=== PATIENT | female | born 1960 | race Caucasian/White ===

== ENCOUNTER 2018-09-03 00:13 | Observation (INO) ==
--- NOTE | 2018-09-03 00:25 | Emergency Department Note ---
ED Disposition Clinical Impression: Tobacco use Chest pain Qualifiers: Chest pain type: precordial pain Qualified Code(s): R07.2 - Precordial pain HTN (hypertension) Qualifiers: Hypertension type: unspecified Qualified Code(s): I10 - Essential (primary) hypertension Disposition: Admitted as Observation Condition on Discharge: Good Referrals: Provider,Referral, [Primary Care Provider] - - Critical Care Critical Care Time: No Attestation: On 09/03/18, the high probability of a clinically significant, sudden or life threatening deterioration of the following system(s) required my full and direct attention, intervention and personal management. The time I documented below is in addition to time spent performing reported procedures but includes the following listed in this critical care notation. Medical Decision Making - Medical Records Medical records reviewed: Yes: I reviewed the patient's medical records. - Navdeep Inquiry Pt receiving controlled substance: No Vital Signs: 09/03/18 00:13 09/03/18 00:55 Temperature 99 F Temperature Source Oral Pulse Rate [Right Radial] 79 70 Respiratory Rate 18 17 Blood Pressure [Right Arm] 188/92 H 136/95 H Blood Pressure Mean [Right Arm] 124 108 Blood Pressure Source [Right Arm] Automatic Cuff Blood Pressure Position [Right Arm] Supine 02 Sat by Pulse Oximetry 98 96 Oxygen Delivery Method Room Air - Lab Data Lab results reviewed: Yes: I reviewed the patient's lab results. Lab Results 09/03/18 00:15: WBC 9.9, RBC 4.65, Hgb 13.3, Hct 41.1, MCV 88.5, MCH 28.6, MCHC 32.3, RDW 13.0, Plt Count 209, MPV 8.0, Neut % (Auto) 53.1, Lymph % (Auto) 37.9, [place] % (Auto) 6.1, Eos % (Auto) 2.0, Baso % (Auto) 0.9, Neut # (Auto) 5.3, Lymph # (Auto) 3.8, [place] # (Auto) 0.6, Eos # (Auto) 0.2, Baso # (Auto) 0.1 09/03/18 00:15: Sodium 144, Potassium 3.5, Chloride 106, Carbon Dioxide 29, Anion Gap 12.5, BUN 18, Creatinine 1.23 H, Estimated Creat Clear 57, Estimated GFR 45 L, Est GFR ( Amer) 54 L, Glucose 100, Calcium 9.2, Troponin I < 0.02 09/03/18 00:17: Urine Color Yellow, Urine Appearance Clear, Urine pH 7.5, Ur Specific [place] 1.015, Urine Protein Negative, Urine Glucose (UA) Negative, Urine Ketones Negative, Urine Blood 1+, Urine Nitrate Negative, Urine Bilirubin Negative, Urine Urobilinogen 0.2, Ur Leukocyte Esterase Negative, Urine RBC 3-5, Urine WBC Occasional, Ur Squamous Epith Cells 20-50 09/03/18 00:17: Urine HCG, Qual Negative Result diagrams: 09/03/18 00:15 09/03/18 00:15 Orders (Tests/Meds): ED MEDICATIONS Discontinued Medications Generic Name Dose Route Start Last Admin Trade Name Freq PRN Reason Stop Dose Admin Aspirin 324 mg 09/03/18 00:20 09/03/18 00:21 Aspirin 81mg Chewable Tablet PO 09/03/18 00:21 324 mg ONCE ONE Administration ORDERS Category Date Time Status XR chest 2V Stat Exams 09/03/18 00:18 Ordered Lipid Panel Stat Lab 09/03/18 01:08 Ordered - Radiology Data #1 Image(s): Chest Image Reviewed: Yes I reviewed the patient's radiology image Preliminary Findings: Normal/NAD - ECG Data Tracing #1 Normal Sinus Rhythm: Yes Ischemic changes: non-specific ST-T wave changes ECG compared to prior tracings: there are no prior tracings available for comparison - Physician Consults Physician Consulted: rachid Reason -: Admission Chest Pain HPI - General Chief Complaint: Chest Pain Stated Complaint: Chest Pain Time Seen by Provider: 09/03/18 00:20 Mode of Arrival: Ambulatory Source of Information: Patient, Medical Record Limitations: No Limitations Description of Symptoms (Recalled from ER Triage Doc. by RN): pt states that she has had squeezing midsternal chest pain that has been going on x 3 days. pt denies seeing a physician concerning matter. - History of Present Illness HPI narrative: new onset of ant chest pain described as chest tightness with several episodes over the last few days lasting about 20 minutes MD complaint: chest pain indicative of cardiac Onset (ago): day(s) Duration: now resolved Activity at onset: during rest Pain location: left chest Quality: tightness Associated symptoms: nausea Risk Factors for CAD: Hypertension, Family Hx of CAD, Smoking Treatments prior to or on arrival for Cardiac Chest Pain: none - MELISSA Score for Non-Stemi Age of Patient: 50-59 years old Heart Rate: 70-89 bpm Systolic Blood Pressure: 160-199 mmHg Serum Creatinine: 1.20-1.59 mg/dl CHF [place] Class: I-No CHF Other Risk Factors: None Non-Stemi Risk Score: 70 - Related Data On Oral Contraceptives: No Allergies Allergy/AdvReac Type Severity Reaction Status Date / Time Penicillins Allergy Verified 09/03/18 00:18 [facility] History - Hepatitis A Screen Drug use history?: No High risk sexual behaviors?: No History of sexually transmitted infection?: No Currently employed?: No Childcare worker?: No Do you have indoor plumbing?: Yes Do you have electricity?: Yes Attestation statement:: This patient has been screened for Hepatitis A risk factors. I have reviewed the patient's past medical history: Yes Medical History: Denies:: Cancer, Diabetes Mellitus Type 1, Diabetes Mellitus Type 2, MRSA Amputation: No - Social History Smoking Status: Current every day smoker # Packs/Day (cigarettes): 1 Alcohol Intake: current Alcohol Intake Frequency:: a few times a month Substance Use Type: marijuana Occupational Status: employed ROS Obtained: Yes All systems reviewed & no additional complaints - Constitutional Constitutional: Denies fever(s) - Eyes Eyes: Denies change in vision - ENT Ears, Nose, Mouth, and Throat: Denies sore throat - Cardiovascular Cardiovascular: Reports as per HPI, Reports chest pain, Reports chest pain at rest - Respiratory Respiratory: No cough, No dyspnea - Gastrointestinal Gastrointestingal: Denies: abdominal pain - Genitourinary Female Genitourinary: Denies hematuria - Musculoskeletal Musculoskeletal: Denies joint pain, Denies joint swelling, Denies neck pain - Integumentary/Breasts Skin/Breast: Denies rash - Neurologic Neurologic: Reports as per HPI, Denies seizure-like activity Physical Exam - General General appearance: alert - Head Head exam: normocephalic - Eye Eye exam: Present: PERRL, EOMI. Absent: scleral icterus - ENT ENT exam: Present: mucous membranes dry - Neck Neck exam: Present: trachea midline - Respiratory Respiratory exam: Present: normal lung sounds bilaterally. Absent: respiratory distress - Cardiovascular Cardiovascular exam: Present: regular rate, systolic murmur - Abdominal Exam Abdominal exam: Present: soft - Extremities Exam Extremities exam: Present: full ROM - Neurological Exam Neurological exam: Present: alert, oriented X3, CN II-XII intact - Psychiatric Psychiatric exam: Present: normal affect - Skin Skin exam: Absent: rash
[2018-09-03 00:31] LABS: Microscopic, Urine URINE MICROSCOPIC (MICROSCOPIC)
[2018-09-03 00:34] LABS: Basophils # 0.1 K/mm3 (0-0.2); Basophils % 0.9 % (0.1-2.0); Eosinophils # 0.2 K/mm3 (0.0-0.4); Hematocrit 41.1 % (37.0-47.0); Hemoglobin 13.3 g/dL (12.2-16.2); Lymphocytes # 3.8 K/mm3 (0.7-4.5); Lymphocytes % 37.9 % (10-50); Mean Corpuscular HGB Conc 32.3 g/dL (31.8-35.4); Mean Corpuscular Volume 88.5 fl (81-99); Monocytes # 0.6 K/mm3 (0.1-1.0); Monocytes % 6.1 % (1.7-9.3); Neutrophils # 5.3 K/mm3 (1.8-7.8); Neutrophils % 53.1 % (37.0-80.0); Platelet Count 209 K/mm3 (142-424); Red Blood Count 4.65 M/mm3 (4.20-5.40); White Blood Count 9.9 K/mm3 (4.8-10.8)
[2018-09-03 00:36] LABS: Appearance,Urine CLEAR (Clear); Bilirubin,Urine Negative (Negative); Blood, Urine 1+ (Negative); Color,Urine YELLOW (Yellow); Glucose,Urine (UA) Negative (Negative); Ketones,Urine Negative (Negative); Leukocyte Esterase,Urine Negative (Negative); PH,Urine 7.5 (5.0-8.5); Protein,Urine Negative (Negative); Specific Gravity, Urine 1.015 (1.005-1.030); Urobilinogen,Urine 0.2 EU/dl (0.2)
[2018-09-03 00:42] LABS: Squamous Epithelial Cell,Urine 20-50 #/hpf (0-5); WBC,Urine Occasional #/hpf (0-3)
[2018-09-03 00:51] LABS: Anion Gap 12.5 mEq/L (5-15); Blood Urea Nitrogen 18 mg/dL (7-18); Calcium 9.2 mg/dL (8.5-10.1); Carbon Dioxide 29 mmol/L (21.0-32.0); Chloride 106 mmol/L (98-107); Glucose 100 mg/dL (74-106); Sodium 144 mmol/L (136-145)
[2018-09-03 01:36] LABS: Chol/HDL Ratio 4.2 (1-3.5)
--- NOTE | 2018-09-03 08:20 | Consult Report ---
History of Present Illness Consult date: 09/03/18 Requesting physician: Sami Cohen Consult reason: chest pain Chief complaint: chest pain Additional Medical History:: 1. Tobacco use 2. FH of CAD in both parents in their late 30's, early 40's (father of [place]) 3. Hypertension History of present illness: 58 yo WF admitted to [facility] for recurrent SS chest pressure/squeezing sensation with discomfort between her shoulder blades without associated SOA, nausea, vomiting or diarrhea. Symptoms present for about 20-30 min and with associated elevated BP of >200/100 mm Hg at home. She relates a total of 4 episodes of chest discomfort prior to presenting to ER for evaluation and was subsequently admitted. Troponins have returned normal and EKG is sinus without acute ST segment changes. NTG paste in place with associated headache. Cardiology consulted for evaluation and recommendations. Recently diagnosed with abscessed tooth and has been taking clindamycin and motrin for 4 days. [facility] History Medical History: Reports:: Heart Murmur Denies:: Cancer, Diabetes Mellitus Type 1, Diabetes Mellitus Type 2, MRSA *Have you ever received a pneumonia vaccine?: No *Have you received a flu vaccine this season?: No Other Surgeries: Yes: Tubal Ligation Amputation: No - *Social History Educational Level: Completed High School Smoking Status: Current every day smoker Tobacco Type: cigarettes # Packs/Day (cigarettes): 1 Alcohol Intake: never Alcohol Intake Frequency:: a few times a month Substance Use Type: marijuana *Occupational Status:: employed Housing: house Household Members: significant other, family *Travel in the last 8 weeks: None - Psychiatric History Expresses thoughts of harming self/others: None Suicide Plan Description: No Plan Family Hx:: Anemia, Cancer, Diabetes, Heart Attack, Hypertension, Stroke Meds Home Medications Medication Instructions Recorded Confirmed Type Clindamycin HCl 150 mg PO QID 09/03/18 09/03/18 History Allergies Allergy/AdvReac Type Severity Reaction Status Date / Time Penicillins Allergy Verified 09/03/18 00:18 Review of Systems - *Cardiovascular Reports chest pain, Denies shortness of breath with activity - *Respiratory Denies cough, Denies shortness of breath with activity - *Gastrointestinal Denies abdominal pain, Denies nausea, Denies vomiting - *Genitourinary Denies urinary urgency - *Musculoskeletal Denies joint pain, Denies back pain - *Neurologic Denies seizure-like activity Exam Vital signs and Labs for Last 24 Hours: Temp Pulse Resp BP Pulse Ox 98 F 68 18 122/73 95 09/03/18 04:00 09/03/18 04:00 09/03/18 04:00 09/03/18 04:00 09/03/18 04:00 Laboratory Results - last 24 hr 09/03/18 00:15: WBC 9.9, RBC 4.65, Hgb 13.3, Hct 41.1, MCV 88.5, MCH 28.6, MCHC 32.3, RDW 13.0, Plt Count 209, MPV 8.0, Neut % (Auto) 53.1, Lymph % (Auto) 37.9, [place] % (Auto) 6.1, Eos % (Auto) 2.0, Baso % (Auto) 0.9, Neut # (Auto) 5.3, Lymph # (Auto) 3.8, [place] # (Auto) 0.6, Eos # (Auto) 0.2, Baso # (Auto) 0.1 09/03/18 00:15: Sodium 144, Potassium 3.5, Chloride 106, Carbon Dioxide 29, Anion Gap 12.5, BUN 18, Creatinine 1.23 H, Estimated Creat Clear 57, Estimated GFR 45 L, Est GFR ( Amer) 54 L, Glucose 100, Calcium 9.2, Troponin I < 0.02 09/03/18 00:17: Urine Color Yellow, Urine Appearance Clear, Urine pH 7.5, Ur Specific [place] 1.015, Urine Protein Negative, Urine Glucose (UA) Negative, Urine Ketones Negative, Urine Blood 1+, Urine Nitrate Negative, Urine Bilirubin Negative, Urine Urobilinogen 0.2, Ur Leukocyte Esterase Negative, Urine RBC 3-5, Urine WBC Occasional, Ur Squamous Epith Cells 20-50 09/03/18 00:17: Urine HCG, Qual Negative 09/03/18 00:17: Triglycerides 199, Cholesterol 207 H, LDL Cholesterol 118, VLDL Cholesterol 40, HDL Cholesterol 49, Cholesterol/HDL Ratio 4.2 H 09/03/18 04:15: Troponin I < 0.02 I & O for Last 24 hours: Intake & Output 08/31/18 09/01/18 09/02/18 09/03/18 11:59 11:59 11:59 11:59 Intake Total 292 / 292 Balance 292 / 292 Weight 162 lb 4 oz - *Routine HEENT Exam Head: Present: normocephalic Eye: Present: EOMI, PERRL ENT: Present: mucous membranes moist - *Routine Neck Exam Present: supple. Absent: JVD, carotid bruit - *Routine Respiratory Exam Present: CTA bilaterally. Absent: accessory muscle use, rales, rhonchi, wheezes - *Routine Cardiovascular Exam Present: RRR. Absent: murmur, gallop, rubs - *Routine Abdominal Exam Present: soft. Absent: tenderness, distended, guarding - *Routine Extremities Exam Absent: edema, calf tenderness - *Routine Neurological Exam Present: alert, oriented X3, moving all extremities Assessment and Plan (1) Chest pain Current visit: Yes Status: Acute Qualifiers: Chest pain type: precordial pain Qualified Code(s): R07.2 - Precordial pain Category: Medical Code(s): R07.9 - Chest pain, unspecified (2) HTN (hypertension) Current visit: Yes Status: Acute Qualifiers: Hypertension type: unspecified Qualified Code(s): I10 - Essential (primary) hypertension Category: Medical Code(s): I10 - Essential (primary) hypertension (3) Tobacco use Current visit: Yes Status: Acute Category: Medical Code(s): Z72.0 - Tobacco use (4) FH: CAD (coronary artery disease) Current visit: Yes Status: Acute Category: Medical Code(s): Z82.49 - Family history of ischemic heart disease and other diseases of the circulatory system - Assessment and plan all Dx Assessment and Plan for all problems:: 1. Stop NTG paste due to headache. 2. Start ASA 81 mg daily along with norvasc 5 mg daily 3. Preliminary echo shows normal LVEF with evidence of LVH without significant valve disease. 4. Pt with elevated BP and chest pain with normal EKG and troponins. CRF's of tobacco use and FH of CAD. Pt concerned about finances and would prefer medical therapy trial first. With echo showing normal LVEF and evidence of LVH, then she is low risk for MACE and could be discharged home for outpatient follow up and further evaluation as indicated.
--- NOTE | 2018-09-03 09:14 | Pharmacy Consult Notes ---
[facility] Pharmacy VTE Monitoring - Patient Demographics Admission date: 09/03/18 Report Date: 09/03/18 Time: 09:14 Allergies/Adverse Reactions: Patient Allergies Penicillins Allergy (Verified 09/03/18 00:18) Height: 1.73 m Weight: 73.595 kg Patient Problems: Current Active Problems (Updated 09/03/18 @ 08:58 by GRECIA Malloy) Chest pain (Acute) Tobacco use (Acute) HTN (hypertension) (Acute) FH: CAD (coronary artery disease) (Acute) - VTE Risk Labs: VTE Related Lab Results Hgb 13.3 g/dL (12.2-16.2) 09/03/18 00:15 Hct 41.1 % (37.0-47.0) 09/03/18 00:15 Plt Count 209 K/mm3 (142-424) 09/03/18 00:15 BUN 18 mg/dL (7-18) 09/03/18 00:15 Creatinine 1.23 mg/dL (0.55-1.02) H 09/03/18 00:15 Estimated Creat Clear 57 mL/min (50-200) 09/03/18 00:15 Was VTE Risk Assessment Performed: Yes VTE Score: 3 VTE Risk Level: Low Risk Clinical Trial Participant: No - Prophylaxis VTE Prophylaxis Ordered?: Yes Types of VTE Prophylaxis: TEDS Knee High
--- NOTE | 2018-09-03 09:27 | H&P/Discharge Summary ---
<Christina Martinez - Last Filed: 09/03/18 13:16> General - General Admission date:: 09/03/18 Discharge date: 09/03/18 *Admission Date: 09/03/18 *Chief complaint: chest pain *History of present illness: Ms. Dilalo is a 58-year-old healthy female who began having chest pain on 09/01/2018. She states she had 2 episodes on this date and describes the discomfort as midsternal squeezing-like pain. There was no radiation, shortness of breath, diaphoresis, or palpitations. She states she did experience some nausea. Each episode lasted about 30 minutes. The following day she did well until after eating at a restaurant. She went home and the pain was gone. After lying down the pain began again. Her blood pressure was elevated at 200+/100+ and at this time she decided she needed to be evaluated. With each episode of chest pain her blood pressure was elevated. With evaluation in the emergency room and because of patient's risk factors, chest pain, and hypertension she was admitted for further evaluation. To note patient recently has had an abscessed tooth and has been taking Motrin 600 mg twice daily for the last 4 days and was also placed on clindamycin by her dentist. She has no family physician. She did have a stress test after being admitted to a hospital with chest pain about 6 years ago which was negative. She has had no follow-up since. [facility] History Medical History: Reports:: Heart Murmur (Had rheumatic fever as a child), Hypertension Denies:: Cancer, Chronic Obstructive Pulmonary Disease (COPD), Coronary Artery Disease, Diabetes Mellitus Type 1, Diabetes Mellitus Type 2, Gastroesophageal Reflux Disease(GERD), MRSA *Have you ever received a pneumonia vaccine?: No *Have you received a flu vaccine this season?: No Other Surgeries: Yes: Tubal Ligation Amputation: No - *Social History Educational Level: Completed High School Smoking Status: Current every day smoker Tobacco Type: cigarettes # Packs/Day (cigarettes): 1 Alcohol Intake: never Alcohol Intake Frequency:: a few times a month Substance Use Type: marijuana *Occupational Status:: employed Housing: house Household Members: significant other, family *Travel in the last 8 weeks: None - Psychiatric History Expresses thoughts of harming self/others: None Suicide Plan Description: No Plan Family Hx:: Anemia, Cancer, Diabetes, Heart Attack, Hypertension, Stroke Review of Systems - Constitutional Reports headache(s), Denies fever(s) - ENT Reports dental pain, Reports dizziness, Reports headache(s), Reports mouth pain (Abscessed tooth and has been taking Motrin and clindamycin for the past 4 d), Denies ear pain, Denies nasal congestion - *Cardiovascular Reports chest pain, Denies excessive sweating, Denies shortness of breath, Denies generalized swelling, Denies irregular heart rhythm, Denies rapid, pounding, or irregular heartbeat, Denies radiating jaw, neck or arm pain - *Respiratory Denies chest congestion, Denies cough, Denies shortness of breath, Denies coughing up blood, Denies pain on inspiration, Denies wheezing - *Gastrointestinal Denies abdominal pain, Denies change in bowel habits, Denies constipation, Denies heartburn, Denies heartburn, Denies vomiting blood, Denies nausea, Denies vomiting - *Genitourinary Denies difficulty urinating - *Musculoskeletal Denies abnormal walking, Denies joint pain - *Neurologic Reports dizziness (When she leans over), Denies abnormal walking, Denies abnormal speech, Denies behavioral changes, Denies confusion, Denies seizure- like activity, Denies seizure-like activity Exam Vital signs and Labs for Last 24 Hours: Temp Pulse Resp BP Pulse Ox 97.9 F 62 22 129/73 95 09/03/18 08:00 09/03/18 08:00 09/03/18 08:00 09/03/18 08:00 09/03/18 08:00 Laboratory Results - last 24 hr 09/03/18 00:15: WBC 9.9, RBC 4.65, Hgb 13.3, Hct 41.1, MCV 88.5, MCH 28.6, MCHC 32.3, RDW 13.0, Plt Count 209, MPV 8.0, Neut % (Auto) 53.1, Lymph % (Auto) 37.9, [place] % (Auto) 6.1, Eos % (Auto) 2.0, Baso % (Auto) 0.9, Neut # (Auto) 5.3, Lymph # (Auto) 3.8, [place] # (Auto) 0.6, Eos # (Auto) 0.2, Baso # (Auto) 0.1 09/03/18 00:15: Sodium 144, Potassium 3.5, Chloride 106, Carbon Dioxide 29, Anion Gap 12.5, BUN 18, Creatinine 1.23 H, Estimated Creat Clear 57, Estimated GFR 45 L, Est GFR ( Amer) 54 L, Glucose 100, Calcium 9.2, Troponin I < 0.02 09/03/18 00:17: Urine Color Yellow, Urine Appearance Clear, Urine pH 7.5, Ur Specific [place] 1.015, Urine Protein Negative, Urine Glucose (UA) Negative, Urine Ketones Negative, Urine Blood 1+, Urine Nitrate Negative, Urine Bilirubin Negative, Urine Urobilinogen 0.2, Ur Leukocyte Esterase Negative, Urine RBC 3-5, Urine WBC Occasional, Ur Squamous Epith Cells 20-50 09/03/18 00:17: Urine HCG, Qual Negative 09/03/18 00:17: Triglycerides 199, Cholesterol 207 H, LDL Cholesterol 118, VLDL Cholesterol 40, HDL Cholesterol 49, Cholesterol/HDL Ratio 4.2 H 09/03/18 04:15: Troponin I < 0.02 09/03/18 07:45: Troponin I < 0.02 I & O for Last 24 hours: Intake & Output 08/31/18 09/01/18 09/02/18 09/03/18 11:59 11:59 11:59 11:59 Intake Total 292 / 292 Balance 292 / 292 Weight 162 lb 4 oz Radiology Reports for the Last 24 Hours: 09/03/2018 chest x-ray IMPRESSION: Negative chest, no acute finding - Constitutional no acute distress Comments: Lying in bed and appears comfortable - *Routine HEENT Exam Head: Present: normocephalic, atraumatic Eye: Present: PERRL. Absent: conjunctival icterus, scleral injection ENT: Present: mucous membranes moist, oropharynx clear - *Routine Neck Exam Present: supple. Absent: carotid bruit, lymphadenopathy, thyromegaly - Routine Chest/Breast/Axilla Exam Chest wall: Absent: tenderness - *Routine Respiratory Exam Present: CTA bilaterally (Anteriorly and posteriorly) - *Routine Cardiovascular Exam Present: RRR - *Routine Abdominal Exam Present: soft, normoactive bowel sounds. Absent: tenderness, distended, guarding, organomegaly - *Routine Extremities Exam Absent: edema, calf tenderness - Routine Back/Spine/Pelvis Exam Back/Spine: Present: paraspinal tenderness (Upper back and cervical spine) - *Routine Neurological Exam Present: alert, oriented X3 Hospital Course Hospital Course: Patient arrived to her room on the medical floor at about 3 AM. She states her chest pain went away after the nitroglycerin and aspirin in the emergency room. She had no further chest discomfort. Troponins have been normal x3. EKG shows no acute changes. She has been seen by cardiology with the following comments: Assessment and Plan for all problems:: 1. Stop NTG paste due to headache. 2. Start ASA 81 mg daily along with norvasc 5 mg daily 3. Preliminary echo shows normal LVEF with evidence of LVH without significant valve disease. 4. Pt with elevated BP and chest pain with normal EKG and troponins. CRF's of tobacco use and FH of CAD. Pt concerned about finances and would prefer medical therapy trial first. With echo showing normal LVEF and evidence of LVH, then she is low risk for MACE and could be discharged home for outpatient follow up and further evaluation as indicated. Thus the patient to be discharged on Norvasc and an aspirin with cardiology follow-up in 1 week. Results Labs on day of discharge: Labs from last 24 hours 09/03/18 09/03/18 09/03/18 07:45 04:15 00:17 WBC RBC Hgb Hct MCV MCH MCHC RDW Plt Count MPV Neut % (Auto) Lymph % (Auto) [place] % (Auto) Eos % (Auto) Baso % (Auto) Neut # (Auto) Lymph # (Auto) [place] # (Auto) Eos # (Auto) Baso # (Auto) Sodium Potassium Chloride Carbon Dioxide Anion Gap BUN Creatinine Estimated Creat Clear Estimated GFR Est GFR ( Amer) Glucose Calcium Troponin I < 0.02 < 0.02 Triglycerides 199 Cholesterol 207 H LDL Cholesterol 118 VLDL Cholesterol 40 HDL Cholesterol 49 Cholesterol/HDL Ratio 4.2 H Urine Color Urine Appearance Urine pH Ur Specific [place] Urine Protein Urine Glucose (UA) Urine Ketones Urine Blood Urine Nitrate Urine Bilirubin Urine Urobilinogen Ur Leukocyte Esterase Urine RBC Urine WBC Ur Squamous Epith Cells Urine HCG, Qual 09/03/18 09/03/18 09/03/18 00:17 00:17 00:15 WBC RBC Hgb Hct MCV MCH MCHC RDW Plt Count MPV Neut % (Auto) Lymph % (Auto) [place] % (Auto) Eos % (Auto) Baso % (Auto) Neut # (Auto) Lymph # (Auto) [place] # (Auto) Eos # (Auto) Baso # (Auto) Sodium 144 Potassium 3.5 Chloride 106 Carbon Dioxide 29 Anion Gap 12.5 BUN 18 Creatinine 1.23 H Estimated Creat Clear 57 Estimated GFR 45 L Est GFR ( Amer) 54 L Glucose 100 Calcium 9.2 Troponin I < 0.02 Triglycerides Cholesterol LDL Cholesterol VLDL Cholesterol HDL Cholesterol Cholesterol/HDL Ratio Urine Color Yellow Urine Appearance Clear Urine pH 7.5 Ur Specific [place] 1.015 Urine Protein Negative Urine Glucose (UA) Negative Urine Ketones Negative Urine Blood 1+ Urine Nitrate Negative Urine Bilirubin Negative Urine Urobilinogen 0.2 Ur Leukocyte Esterase Negative Urine RBC 3-5 Urine WBC Occasional Ur Squamous Epith Cells 20-50 Urine HCG, Qual Negative 09/03/18 00:15 WBC 9.9 RBC 4.65 Hgb 13.3 Hct 41.1 MCV 88.5 MCH 28.6 MCHC 32.3 RDW 13.0 Plt Count 209 MPV 8.0 Neut % (Auto) 53.1 Lymph % (Auto) 37.9 [place] % (Auto) 6.1 Eos % (Auto) 2.0 Baso % (Auto) 0.9 Neut # (Auto) 5.3 Lymph # (Auto) 3.8 [place] # (Auto) 0.6 Eos # (Auto) 0.2 Baso # (Auto) 0.1 Sodium Potassium Chloride Carbon Dioxide Anion Gap BUN Creatinine Estimated Creat Clear Estimated GFR Est GFR ( Amer) Glucose Calcium Troponin I Triglycerides Cholesterol LDL Cholesterol VLDL Cholesterol HDL Cholesterol Cholesterol/HDL Ratio Urine Color Urine Appearance Urine pH Ur Specific [place] Urine Protein Urine Glucose (UA) Urine Ketones Urine Blood Urine Nitrate Urine Bilirubin Urine Urobilinogen Ur Leukocyte Esterase Urine RBC Urine WBC Ur Squamous Epith Cells Urine HCG, Qual DS: Diagnosis - Discharge Diagnosis (1) Chest pain Status: Acute (2) HTN (hypertension) Status: Acute (3) Tobacco use Status: Acute (4) FH: CAD (coronary artery disease) Status: Acute (5) Tooth abscess Status: Acute (6) Renal insufficiency Status: Acute Discharge Plan - Patient Discharge Instructions Patient Instructions: High Blood Pressure - Follow up Plan Follow up with: Javier Arellano MD [Staff Physician] - 09/07/18 11:30 am Disposition: Home, Self-Long Term Medications: Home Medications Medication Instructions Recorded Confirmed Type Amlodipine Besylate [Norvasc 5mg 5 mg PO DAILY #30 tab 09/03/18 Rx tablet] Aspirin [Aspirin 81mg chewable 81 mg PO DAILY #30 tab.chew 09/03/18 Rx tab] Clindamycin HCl 150 mg PO QID 09/03/18 09/03/18 History Prescriptions/Medication Reconciliation: New Amlodipine Besylate [Norvasc 5mg tablet] 5 mg PO DAILY #30 tab Aspirin [Aspirin 81mg chewable tab] 81 mg PO DAILY #30 tab.chew Continued Clindamycin HCl 150 mg PO QID <Sami Cohen - Last Filed: 09/03/18 13:21> General - General Admission date:: 09/03/18 Exam Vital signs and Labs for Last 24 Hours: Temp Pulse Resp BP Pulse Ox 98.2 F 66 16 111/66 95 09/03/18 11:39 09/03/18 11:39 09/03/18 11:39 09/03/18 11:39 09/03/18 11:39 Laboratory Results - last 24 hr 09/03/18 00:15: WBC 9.9, RBC 4.65, Hgb 13.3, Hct 41.1, MCV 88.5, MCH 28.6, MCHC 32.3, RDW 13.0, Plt Count 209, MPV 8.0, Neut % (Auto) 53.1, Lymph % (Auto) 37.9, [place] % (Auto) 6.1, Eos % (Auto) 2.0, Baso % (Auto) 0.9, Neut # (Auto) 5.3, Lymph # (Auto) 3.8, [place] # (Auto) 0.6, Eos # (Auto) 0.2, Baso # (Auto) 0.1 09/03/18 00:15: Sodium 144, Potassium 3.5, Chloride 106, Carbon Dioxide 29, Anion Gap 12.5, BUN 18, Creatinine 1.23 H, Estimated Creat Clear 57, Estimated GFR 45 L, Est GFR ( Amer) 54 L, Glucose 100, Calcium 9.2, Troponin I < 0.02 09/03/18 00:17: Urine Color Yellow, Urine Appearance Clear, Urine pH 7.5, Ur Specific [place] 1.015, Urine Protein Negative, Urine Glucose (UA) Negative, Urine Ketones Negative, Urine Blood 1+, Urine Nitrate Negative, Urine Bilirubin Negative, Urine Urobilinogen 0.2, Ur Leukocyte Esterase Negative, Urine RBC 3-5, Urine WBC Occasional, Ur Squamous Epith Cells 20-50 09/03/18 00:17: Urine HCG, Qual Negative 09/03/18 00:17: Triglycerides 199, Cholesterol 207 H, LDL Cholesterol 118, VLDL Cholesterol 40, HDL Cholesterol 49, Cholesterol/HDL Ratio 4.2 H 09/03/18 04:15: Troponin I < 0.02 09/03/18 07:45: Troponin I < 0.02 I & O for Last 24 hours: Intake & Output 08/31/18 09/01/18 09/02/18 09/03/18 23:59 23:59 23:59 23:59 Intake Total 532 / 532 Balance 532 / 532 Weight 162 lb 4 oz Hospital Course Hospital Course: Saw patient, agree with above note. Results Labs on day of discharge: Labs from last 24 hours 09/03/18 09/03/18 09/03/18 07:45 04:15 00:17 WBC RBC Hgb Hct MCV MCH MCHC RDW Plt Count MPV Neut % (Auto) Lymph % (Auto) [place] % (Auto) Eos % (Auto) Baso % (Auto) Neut # (Auto) Lymph # (Auto) [place] # (Auto) Eos # (Auto) Baso # (Auto) Sodium Potassium Chloride Carbon Dioxide Anion Gap BUN Creatinine Estimated Creat Clear Estimated GFR Est GFR ( Amer) Glucose Calcium Troponin I < 0.02 < 0.02 Triglycerides 199 Cholesterol 207 H LDL Cholesterol 118 VLDL Cholesterol 40 HDL Cholesterol 49 Cholesterol/HDL Ratio 4.2 H Urine Color Urine Appearance Urine pH Ur Specific [place] Urine Protein Urine Glucose (UA) Urine Ketones Urine Blood Urine Nitrate Urine Bilirubin Urine Urobilinogen Ur Leukocyte Esterase Urine RBC Urine WBC Ur Squamous Epith Cells Urine HCG, Qual 09/03/18 09/03/18 09/03/18 00:17 00:17 00:15 WBC RBC Hgb Hct MCV MCH MCHC RDW Plt Count MPV Neut % (Auto) Lymph % (Auto) [place] % (Auto) Eos % (Auto) Baso % (Auto) Neut # (Auto) Lymph # (Auto) [place] # (Auto) Eos # (Auto) Baso # (Auto) Sodium 144 Potassium 3.5 Chloride 106 Carbon Dioxide 29 Anion Gap 12.5 BUN 18 Creatinine 1.23 H Estimated Creat Clear 57 Estimated GFR 45 L Est GFR ( Amer) 54 L Glucose 100 Calcium 9.2 Troponin I < 0.02 Triglycerides Cholesterol LDL Cholesterol VLDL Cholesterol HDL Cholesterol Cholesterol/HDL Ratio Urine Color Yellow Urine Appearance Clear Urine pH 7.5 Ur Specific [place] 1.015 Urine Protein Negative Urine Glucose (UA) Negative Urine Ketones Negative Urine Blood 1+ Urine Nitrate Negative Urine Bilirubin Negative Urine Urobilinogen 0.2 Ur Leukocyte Esterase Negative Urine RBC 3-5 Urine WBC Occasional Ur Squamous Epith Cells 20-50 Urine HCG, Qual Negative 09/03/18 00:15 WBC 9.9 RBC 4.65 Hgb 13.3 Hct 41.1 MCV 88.5 MCH 28.6 MCHC 32.3 RDW 13.0 Plt Count 209 MPV 8.0 Neut % (Auto) 53.1 Lymph % (Auto) 37.9 [place] % (Auto) 6.1 Eos % (Auto) 2.0 Baso % (Auto) 0.9 Neut # (Auto) 5.3 Lymph # (Auto) 3.8 [place] # (Auto) 0.6 Eos # (Auto) 0.2 Baso # (Auto) 0.1 Sodium Potassium Chloride Carbon Dioxide Anion Gap BUN Creatinine Estimated Creat Clear Estimated GFR Est GFR ( Amer) Glucose Calcium Troponin I Triglycerides Cholesterol LDL Cholesterol VLDL Cholesterol HDL Cholesterol Cholesterol/HDL Ratio Urine Color Urine Appearance Urine pH Ur Specific [place] Urine Protein Urine Glucose (UA) Urine Ketones Urine Blood Urine Nitrate Urine Bilirubin Urine Urobilinogen Ur Leukocyte Esterase Urine RBC Urine WBC Ur Squamous Epith Cells Urine HCG, Qual DS: Diagnosis - Discharge Diagnosis (1) Chest pain Status: Acute (2) HTN (hypertension) Status: Acute (3) Tobacco use Status: Acute (4) FH: CAD (coronary artery disease) Status: Acute (5) Tooth abscess Status: Acute (6) Renal insufficiency Status: Acute
--- NOTE | 2018-09-03 21:00 | Cardiology Report ---
PROCEDURE: 2-D M-mode and color Doppler study INDICATIONS FOR THE TEST: Chest pain + COPD Heart Murmur Tobacco Smoking+ Palpitations Fatigue Syncope Edema Hypertension+Diabetes Mellitus Rheumatic Fever SOB BOWDEN Obesity Hyperlipidemia Family History HD Additional History PATIENT INFORMATION HEIGHT: 68 WEIGHT:160 GENDER: Female B/P:136/95 2-D/M-MODE INTERPRETATION: 2-D MEASUREMENTS OBSERVED VALUES IN CMS Right Ventricular Dimension (RVDd) 2.4 Interventricular Septum (Thickness)(IVsd) 0.9 Left Ventricular Internal Dimensions(LVIDd) 4.9 Left Ventricular Posterior Wall (Thickness)(LVPWd) 0.7 Aortic Root 3.9 Aortic Cusp Separation 2.0 Left Atrial Dimensions (LAD) 3.7 2D 1. Left atrium is mildly enlarged, left ventricle is normal size, mild concentric left ventricular hypertrophy, visually estimated ejection fraction 55% with no regional wall motion abnormality. 2. The right atrium and right ventricle are mildly enlarged with normal contractility. 3. The aortic root is enlarged measuring 3.9 cm. 4. The mitral and tricuspid valve leaflets are thickened. 5. The pulmonic valve Is poorly visualized. 6. No significant pericardial effusion noted DOPPLER INTERROGATION: Doppler interrogation of the aortic, mitral and tricuspid valvular presence of mild aortic, mild mitral and tricuspid regurgitation. Tricuspid regurgitation jet velocity is inadequate for calculation of the right ventricular systolic pressure, diastolic parameters are inconclusive CONCLUSION: 1. Mildly enlarged left atrium, normal left ventricular size, mild concentric left ventricular hypertrophy, visually estimated ejection fraction 55% with no regional wall motion abnormality, diastolic parameters are inconclusive. 2. Enlarged aortic root, there is no aortic stenosis, there is mild aortic insufficiency. 3. Mild mitral and tricuspid regurgitation 4. No significant pericardial effusion noted.
== END 2018-09-03 13:20 | disposition home or self-care (01) ==
LOC: ER 00:13 → 2ND 00:13
PROVIDERS: ADMIT Family Medicine; ATTEND Family Medicine
DX: Z82.49 Family history of ischemic heart disease and other diseases of the circulatory system; Z72.0 Tobacco use; Z88.0 Allergy status to penicillin; N28.9 Disorder of kidney and ureter, unspecified; K04.7 Periapical abscess without sinus; R07.2 Precordial pain; I10 Essential (primary) hypertension
CPT/HCPCS: 36415; 71020; 71046; 80048; 80061; 81001; 81025; 84484; 85025; 93005; 93306; 99284; G0378

== ENCOUNTER 2020-06-29 11:26 | Observation (INO) | payer BC, SELFPAY ==
[2020-06-29] VITALS (11 sets, daily range): BP systolic 113–142; BP diastolic 76–99; PULSE 71–99; RESP 14–20; TEMP 36.8; O2SAT 96–98; BMI 25.0; BMI 24.3
--- NOTE | 2020-06-29 11:16 | ECG_ITS ---
APPROVED REPORT Exam: Resting ECG HR:110 bpm ECG Measurements Heart Rate 110 AXES [place] 138 P 73 QRSd 88 QRS 67 QT 314 T 65 QTc 424 Conclusion Sinus tachycardia Biatrial enlargement Abnormal ECG Electronically signed by : Kam Davis, 06/29/2020 17:43:32
--- NOTE | 2020-06-29 11:33 | CT_ITS ---
PROCEDURE: CT ANGIO CHEST CLINCIAL INDICATION: short of breath, cancer Tobacco use, colon cancer COMPARISON: No exams were available for comparison TECHNIQUE: IV Contrast: 70ML Isovue 370 Axial images obtained with sagittal and coronal reformats. All CT scans at the facility use one or more dose reduction, viz: automated exposure control, ma/kV adjustment per patient size (including targeted exams where dose is matched to indication, i.e. head), or iterative reconstruction technique. FINDINGS: HEART AND MEDIASTINAL STRUCTURES: No evidence of pulmonary embolus, aortic aneurysm, or aortic dissection. There is some mild haziness of the mediastinal. This is of questionable clinical significance and chronicity. Old films would be helpful if available. No obvious mediastinal or hilar mass or adenopathy. LUNGS AND PLEURAL SPACES: COPD changes with mild scattered haziness of the interstitial markings which may be related to smoking related lung disease. There are scattered cystic changes of the lung in the right upper lobe. No lobar consolidation. No suspicious nodules. BONY STRUCTURES: No acute bony abnormalities apparent. UPPER ABDOMEN: There is narrowing of the GE junction. This is nonspecific and could be due to nondistention. Upper endoscopy may confirm. ADDITIONAL FINDINGS: No other significant abnormalities. IMPRESSION: 1. No evidence of pulmonary embolus. 2. Hazy scattered interstitial markings which may be related to smoking related lung disease. 3. Bronchiectasis in the right upper lobe with some nonspecific cystic changes in the right upper lobe anteriorly and medially. 4. Narrowing of the GE junction. Consider upper endoscopy for further evaluation. Dictated by: Hebert Quinones MD 06/29/2020 13:10 Hebert Quinones MD in [place] 06/29/2020 13:10
--- NOTE | 2020-06-29 11:34 | [facility].EDGENADL ---
ED Disposition Clinical Impression: Atypical chest pain Colon cancer Qualifiers: Colon location: unspecified part of colon Qualified Code(s): C18.9 - Malignant neoplasm of colon, unspecified HTN (hypertension) Qualifiers: Hypertension type: essential hypertension Qualified Code(s): I10 - Essential (primary) hypertension Disposition: Admitted as Observation Condition on Discharge: Fair Time of Disposition: 14:09 - Critical Care Critical Care Time: No Attestation: On , the high probability of a clinically significant, sudden or life threatening deterioration of the following system(s) required my full and direct attention, intervention and personal management. The time I documented below is in addition to time spent performing reported procedures but includes the following listed in this critical care notation. Medical Decision Making - Medical Records Medical records reviewed: Yes: I reviewed the patient's medical records. - Navdeep Inquiry Pt receiving controlled substance: No Vital Signs: 06/29/20 11:27 06/29/20 11:45 06/29/20 12:53 Temperature 98.3 F Temperature Source Oral Pulse Rate 88 82 Pulse Rate [Right Radial] 99 H Respiratory Rate 18 15 16 Blood Pressure 121/88 115/83 Blood Pressure [Right Arm] 142/99 H Blood Pressure Mean 89 Blood Pressure Mean [Right Arm] 113 Blood Pressure Source Blood Pressure Source [Right Arm] Automatic Cuff Blood Pressure Position Blood Pressure Position [Right Arm] Sitting 02 Sat by Pulse Oximetry 96 96 97 Oxygen Delivery Method Room Air Room Air 06/29/20 12:54 06/29/20 13:00 06/29/20 13:30 Temperature Temperature Source Pulse Rate 77 71 72 Pulse Rate [Right Radial] Respiratory Rate 18 16 16 Blood Pressure 115/83 121/83 114/79 Blood Pressure [Right Arm] Blood Pressure Mean 90 87 Blood Pressure Mean [Right Arm] Blood Pressure Source Automatic Cuff Blood Pressure Source [Right Arm] Blood Pressure Position Sitting Blood Pressure Position [Right Arm] 02 Sat by Pulse Oximetry 96 97 97 Oxygen Delivery Method Room Air Room Air 06/29/20 14:00 06/29/20 15:06 Temperature Temperature Source Pulse Rate 81 Pulse Rate [Right Radial] Respiratory Rate 20 14 Blood Pressure 136/84 118/82 Blood Pressure [Right Arm] Blood Pressure Mean Blood Pressure Mean [Right Arm] Blood Pressure Source Blood Pressure Source [Right Arm] Blood Pressure Position Blood Pressure Position [Right Arm] 02 Sat by Pulse Oximetry 96 Oxygen Delivery Method - Lab Data Lab Results 06/29/20 11:41: WBC 9.0, RBC 4.42, Hgb 12.9, Hct 40.5, MCV 91.6, MCH 29.1, MCHC 31.8, RDW 12.2, Plt Count 168, MPV 8.3, Neut % (Auto) 74.0, Lymph % (Auto) 21.5, [place] % (Auto) 2.4, Eos % (Auto) 1.8, Baso % (Auto) 0.4, Neut # (Auto) 6.6, Lymph # (Auto) 1.9, [place] # (Auto) 0.2, Eos # (Auto) 0.2, Baso # (Auto) 0.0 06/29/20 11:41: Sodium 137, Potassium 3.7, Chloride 105, Carbon Dioxide 24, Anion Gap 11.7, BUN 18 H, Creatinine 0.80, Estimated Creat Clear 89, Estimated GFR 73, Est GFR ( Amer) 89, Glucose 128 H, Calcium 8.7, Total Bilirubin 0.5, AST 31, ALT 15, Alkaline Phosphatase 67, Troponin I < 0.01, Total Protein 6.5, Albumin 4.0, Globulin 2.5, Albumin/Globulin Ratio 1.6 06/29/20 11:41: NT-Pro-B Natriuret Pep 53.3 06/29/20 14:55: Troponin I < 0.01 Result diagrams: 06/29/20 11:41 06/29/20 11:41 Orders (Tests/Meds): ED MEDICATIONS Generic Name Dose Route Start Last Admin Trade Name Annelise PRN Reason Stop Dose Admin Acetaminophen 650 mg 06/29/20 15:46 Acetaminophen 325mg Tab PO 07/29/20 15:45 Q4HP PRN Fever or Mild Pain Diphenhydramine HCl 50 mg 06/30/20 09:30 Diphenhydramine 50mg/Ml Vial IV 06/30/20 09:31 ONCE ONE Sodium Chloride 1,000 mls @ 50 mls/hr 06/29/20 15:46 Sod Chlor 0.9% 1000ml Bag IV 07/29/20 15:45 .Q20H RITU Non-Formulary Medication 8 mg 06/29/20 15:46 Ondansetron [Ond
[2020-06-29 11:55] LABS: Basophils % 0.4 % (0.1-2.0); Eosinophils # 0.2 K/mm3 (0.0-0.4); Eosinophils % 1.8 % (0.1-12.0); Hematocrit 40.5 % (37.0-47.0); Hemoglobin 12.9 g/dL (12.2-16.2); Lymphocytes # 1.9 K/mm3 (0.7-4.5); Lymphocytes % 21.5 % (10-50); Mean Corpuscular HGB Conc 31.8 g/dL (31.8-35.4); Mean Corpuscular Hemoglobin 29.1 pg (27.0-31.2); Mean Corpuscular Volume 91.6 fl (81-99); Mean Platelet Volume 8.3 fl (7.4-10.4); Monocytes # 0.2 K/mm3 (0.1-1.0); Monocytes % 2.4 % (1.7-9.3); Neutrophils # 6.6 K/mm3 (1.8-7.8); Platelet Count 168 K/mm3 (142-424); Red Blood Count 4.42 M/mm3 (4.20-5.40); Red Cell Distribution Width 12.2 % (11.5-17.5)
[2020-06-29 11:56] LABS: Chloride 105 mmol/L (98-107); Potassium 3.7 mmoL/L (3.5-5.1); Sodium 137 mmol/L (136-145)
[2020-06-29 11:58] LABS: Alanine Aminotransferase 15 U/L (12-78); Aspartate Amino Transferase 31 U/L (14-36); Blood Urea Nitrogen 18 mg/dl (7-17); Creatinine Clearance Estimated 89 mL/min (50-200); Estimated Glomerular Filt Rate 73 ml/min (>60); GFR (African American) 89 ML/MIN (>60)
[2020-06-29 11:59] LABS: Albumin/Globulin Ratio 1.6 (1.1-1.8); Alkaline Phosphatase 67 U/L (38-126); Anion Gap 11.7 mEq/L (5-15); Bilirubin,Total 0.5 mg/dl (0.2-1.3); Calcium 8.7 mg/dl (8.4-10.2); Carbon Dioxide 24 mmol/L (22.0-30.0); Globulin 2.5 g/dL (1.3-3.2); Glucose 128 mg/dl (74-100); Total Protein,Serum 6.5 g/dl (6.3-8.2)
[2020-06-29 12:08] LABS: NT Pro Brain Natriuretic Pep. 53.3 pg/mL (0-125)
[2020-06-29 12:21] LABS: Troponin I < 0.01 ng/ml (0.00-0.034)
--- NOTE | 2020-06-29 12:31 | PC.NURSE ---
pt in CT
--- NOTE | 2020-06-29 12:50 | PC.NURSE ---
pt return from CT
--- NOTE | 2020-06-29 14:11 | PC.NURSE ---
waiting diamond finishing supervisor back from Dr. Curtis who is on service call.
--- NOTE | 2020-06-29 14:12 | PC.NURSE ---
notified cardiology staff of consult on pt per ER MD request.
--- NOTE | 2020-06-29 14:57 | PC.NURSE ---
Called Dr. Curtis office and spoke with Megan, advised he was in a room and she would have him call us right back
--- NOTE | 2020-06-29 15:04 | PC.NURSE ---
Dr Camargo speaking to Dr Curtis about pt
[2020-06-29 15:47] LABS: Troponin I < 0.01 ng/ml (0.00-0.034)
--- NOTE | 2020-06-29 15:50 | HMH.CNCARD ---
History of Present Illness Consult date: 06/29/20 Requesting physician: Joanie Camargo Consult reason: chest pain Chief complaint: chest pain History of present illness: This is a 59-year-old white female who presented to the emergency department with complaints of chest pain. The patient states that the pain started initially in her back between her shoulder blades and then radiated to the substernal aspect of her chest. The patient states that it feels like she has a band around her squeezing. She states that this also radiated to her neck and her left shoulder. She states that the episodes occur intermittently. She states the chest pain started when she got her first chemo treatment on Monday of last week but significantly worsened on Monday when her chemo was completed on Monday. She states that he got more intense this morning so she decided to come into the emergency department. It is associated with shortness of breath. She also complains of nausea but she is not sure if this is from the chemo or from the chest tightness. She states that this has been off and on since last Monday and just continues to worsen. She does have a history of hypertension and is a tobacco user. Her father at the age of 36 from an ND. She was recently diagnosed with metastatic colon cancer and as mentioned above was started on chemo last Monday. She was told her cancer is inoperable at this point. She has no cardiac history that she is aware of. She denies any edema. She denies any fever, chills, vomiting, diarrhea, PND or orthopnea. She reports this morning her blood pressure was 185/120 with the sudden onset of chest tightness which is unusual for her. She does take bisoprolol for hypertension but only takes this as needed. [facility] History I have reviewed the patient's past medical history: Yes Medical History: Reports:: Cancer (colon cancer), Heart Murmur, Hypertension Denies:: Chronic Obstructive Pulmonary Disease (COPD), Coronary Artery Disease, Diabetes Mellitus Type 1, Diabetes Mellitus Type 2, Gastroesophageal Reflux Disease(GERD), MRSA *Have you ever received a pneumonia vaccine?: No *Have you received a flu vaccine this season?: No Other Surgeries: Yes: Tubal Ligation Amputation: No - *Social History Smoking Status: Current some day smoker Tobacco Type: cigarettes # Packs/Day (cigarettes): 1 #Yrs smoked (if former smoker): 25 Alcohol Intake: never Alcohol Intake Frequency:: holidays/special occasions only Substance Use Type: marijuana *Occupational Status:: other Housing: house Household Members: significant other, family *Travel in the last 8 weeks: None Family Hx:: Anemia, Cancer, Diabetes, Heart Attack, Hypertension, Stroke Meds Home Medications Medication Instructions Recorded Confirmed Type Aspirin [Aspirin 81mg chewable 81 mg PO DAILY #30 tab.chew 09/03/18 Rx tab] bisoprolol fumarate 5 mg tablet 5 mg PO QDAY #30 tab 09/07/18 09/07/18 Rx LORazepam [Ativan 1mg tablet] 1 mg PO BID PRN 06/29/20 06/29/20 History Ondansetron [Ondansetron Odt 8mg 8 mg PO Q8H PRN 06/29/20 06/29/20 History Tab] Oxycodone HCl/Acetaminophen 1 - 2 tab PO Q4H PRN 06/29/20 06/29/20 History [Percocet 5/325mg tablet] Prochlorperazine Maleate 10 mg PO Q6H PRN 06/29/20 06/29/20 History [Compazine 10mg tablet] Allergies Allergy/AdvReac Type Severity Reaction Status Date / Time Penicillins Allergy Verified 09/07/18 12:11 Exam Vital signs and Labs for Last 24 Hours: Temp Pulse Resp BP Pulse Ox 98.3 F 81 14 118/82 96 06/29/20 11:27 06/29/20 14:00 06/29/20 15:06 06/29/20 15:06 06/29/20 14:00 Laboratory Results - last 24 hr 06/29/20 11:41: WBC 9.0, RBC 4.42, Hgb 12.9, Hct 40.5, MCV 91.6, MCH 29.1, MCHC 31.8, RDW 12.2, Plt Count 168, MPV 8.3, Neut % (Auto) 74.0, Lymph % (Auto) 21.5, [place] % (Auto) 2.4, Eos % (Auto) 1.8, Baso % (Auto) 0.4, Neut # (Auto) 6.6, Lymph # (Auto) 1.9, [place] # (Auto)
--- NOTE | 2020-06-29 16:01 | CA_ITS ---
APPROVED REPORT EXAM: Comprehensive 2D, Doppler, and color-flow Echocardiogram It Field Technician: RHONDA Oliveira, RVS Ht: 5 ft 8 in Wt: 165lbs BSA: 1.88 BP: 118/82 mmHg Indications: cp, S/p port for chemo <1 week ago. colon CA, Smoker, family hx-cad Echo Enhancing Agent Comments: Poor acoustics throughout exam 2D Dimensions IVSd 0.53 cm LVEF (Visual) 73.70 % PWd 0.80 cm LVDd 4.45 cm LVDs 2.56 cm Aortic Root 3.78 cm Left Atrium 1.64 cm LVOT 1.99 cm (M/F) 1.5-2.5 Ascending Aorta 3.99 cm M-Mode Dimensions LA Diam 2.27 cm (1.9-4.0) Ao Diam 4.37 cm (2.0-3.7) EPSs 0.61 cm TAPSE 2.10 (<1.7) LV Diastology E Decel Time 337.00 (160-240 msec) E/A Ratio 0.93 MED E' 7.20 (< 7 cm/sec) MED A' 12.10 cm/s E'/MED E' Ratio 7.68 (>14) LAT E' 8.50 (<10 cm/sec) LAT A' 11.80 cm/s E/LAT E' Ratio 6.51 (>14) Aortic Valve LVOT Max 111.00 (70-110 cm/s) LVOT VTI 21.11 cm AO Peak GR. 6.20 mmHg Mitral Valve MV A Velocity 59.00 (40-130 cm/s) E/A Ratio 0.93 MV Decel. Time 337.00 (160-240 ms) Pulmonary Valve PV Peak Velocity 52.00 (50-150 cm/s) Tricuspid Valve TR P. Velocity 155.00 cm/s RAP Estimate 10.00 mmHg RVSP 19.60 mmHg Left Ventricle Left atrium is mildly enlarged, left ventricle is normal size, mild concentric left ventricular hypertrophy, visually estimated ejection fraction 55% with no regional wall motion abnormality, grade 1 diastolic dysfunction seen without tissue Doppler evidence of raise left atrial pressure. Right Ventricle Right atrium and right ventricle are mildly enlarged with normal contractility. Aortic Valve Aortic valve is minimally thickened and fibrosed, there is no aortic stenosis or aortic insufficiency. Mitral Valve Mitral valve grossly normal, there is trace mitral regurgitation. Tricuspid Valve Tricuspid grossly normal, there is trace tricuspid regurgitation. Pulmonic Valve Pulmonic valve is poorly visualized. Great Vessels Aortic root and ascending aorta is mildly enlarged measuring 3.8 cm. Pericardium No significant pericardial effusion noted. Conclusion 1. Mild biatrial enlargement, normal left ventricular size, mild concentric left ventricular hypertrophy, visually estimated ejection fraction 55% with no regional wall motion abnormality, grade 1 diastolic dysfunction seen without tissue Doppler evidence of raise left atrial pressure. 2. Mildly enlarged right ventricle with normal contractility. 3. Thickened and calcified aortic valve without aortic stenosis or aortic insufficiency, aortic root and ascending aorta is mildly enlarged as described above. 4. No significant pericardial effusion noted. Electronically signed by : Ravi Ohara, 06/29/2020 19:19:03
--- NOTE | 2020-06-29 17:24 | PC.NURSE ---
report called to oma beebe rn on second floor at this time, states she will send staff down to get pt.
--- NOTE | 2020-06-29 17:44 | PC.NURSE ---
Pt arrived to the floor at this time.
--- NOTE | 2020-06-29 18:53 | PC.NURSE ---
Pt new admit to floor.
[2020-06-29 19:08] LABS: Troponin I < 0.01 ng/ml (0.00-0.034)
[2020-06-29 22:16] LABS: Troponin I < 0.01 ng/ml (0.00-0.034)
[2020-06-30] VITALS (17 sets, daily range): BP systolic 103–137; BP diastolic 50–91; PULSE 59–80; RESP 13–20; TEMP 36.4–37; O2SAT 94–100; BMI 24.2
--- NOTE | 2020-06-30 | IR_ITS ---
APPROVED REPORT Patient Location: Inpatient Air Bag Stripper: SHELLEY Villa RT (R) PROCEDURES Left heart catheterization Left ventriculogram Selective coronary angiogram INDICATION Recalcitrant chest pain, Patient has known metastatic colon cancer and is experiencing recalcitrant chest pain. She does have risk factors for coronary artery disease and we felt a stress test would not be an appropriate test in a patient where ongoing chest pain would be anticipated. In order to completely evaluate her chest pain and possible ischemic heart disease it was felt a cardiac catheterization would be the best most expeditious and accurate test. Because of this patient underwent coronary angiography Informed consent was obtained prior to the procedure. COMPLICATIONS NONE Estimated Blood Loss: LESS THAN 10 ML TECHNIQUE One percent lidocaine used to anesthetize the right anterior aspect of the wrist. The right radial artery was accessed via the Seldinger technique. A 6 [place] sheath was placed in the right radial artery. 2.5 mg of verapamil, 800 mcg of nitroglycerin, 1mg Lidocaine and 5000 U Heparin were given through the arterial sheath. The trap catheter was also used to perform left heart catheterization, left ventriculogram and selective coronary angiogram. At the end of the procedure the sheath was removed good hemostasis was achieved using Traclet band, patient was transferred to the postop holding area in stable condition. ANGIOGRAPHIC RESULTS The left main artery Normal The left anterior descending artery Normal The circumflex artery Normal The right coronary artery Dominant normal The MORA ventriculogram reveals Normal 65% The left ventricular end-diastolic pressure 10 mmHg IMPRESSION Normal coronary arteries Normal ejection fraction Normal left ventricular end-diastolic pressure PLAN 1. Treatment of noncardiac chest pain Electronically signed by : Javier Arellano, 06/30/2020 12:37:33
--- NOTE | 2020-06-30 03:02 | PC.NURSE ---
A&OX4. PT TOLERATING RA WELL. PT HAS NOT C/O SOA, TIGHTNESS IN CHEST OR CP. PT HAS REMAINED NSR ON TELE. PT HAS ONLY C/O PAIN THROUGHOUT HER ABD AND SIDES. TX WITH PRN PAIN MED. ON REASSESSMENT, PT STATES RELIEF OF PAIN. PT TOLERATING NPO DIET SINCE MIDNIGHT. PT HAS SHOWERED. SLEPT WELL T/O MAJORITY OF SHIFT. AT BEDSIDE. VSS WILL CONTINUE TO MONITOR.
[2020-06-30 07:07] LABS: Basophils % 0.6 % (0.1-2.0); Eosinophils # 0.2 K/mm3 (0.0-0.4); Hematocrit 36.5 % (37.0-47.0); Hemoglobin 12.3 g/dL (12.2-16.2); Lymphocytes # 2.5 K/mm3 (0.7-4.5); Lymphocytes % 39.9 % (10-50); Mean Corpuscular HGB Conc 33.8 g/dL (31.8-35.4); Mean Corpuscular Hemoglobin 30.3 pg (27.0-31.2); Mean Corpuscular Volume 89.8 fl (81-99); Mean Platelet Volume 8.6 fl (7.4-10.4); Monocytes # 0.2 K/mm3 (0.1-1.0); Monocytes % 2.8 % (1.7-9.3); Neutrophils # 3.3 K/mm3 (1.8-7.8); Neutrophils % 53.7 % (37.0-80.0); Platelet Count 141 K/mm3 (142-424); Red Blood Count 4.07 M/mm3 (4.20-5.40); Red Cell Distribution Width 12.5 % (11.5-17.5); White Blood Count 6.2 K/mm3 (4.8-10.8)
[2020-06-30 07:22] LABS: Anion Gap 6.2 mEq/L (5-15); Blood Urea Nitrogen 13 mg/dl (7-17); Calcium 8.6 mg/dl (8.4-10.2); Carbon Dioxide 26 mmol/L (22.0-30.0); Chloride 110 mmol/L (98-107); Creatinine Clearance Estimated 87 mL/min (50-200); Estimated Glomerular Filt Rate 73 ml/min (>60); GFR (African American) 89 ML/MIN (>60); Glucose 90 mg/dl (74-100); Potassium 4.2 mmoL/L (3.5-5.1); Sodium 138 mmol/L (136-145)
--- NOTE | 2020-06-30 07:35 | HMH.PHAVTE ---
[facility] VTE Monitoring - Patient Demographics Admission date: 06/29/20 Report Date: 06/30/20 Time: 07:35 Allergies/Adverse Reactions: Patient Allergies clindamycin Allergy (Verified 06/29/20 17:23) Penicillins Allergy (Verified 09/07/18 12:11) Height: 1.73 m Weight: 72.575 kg Patient Problems: Current Active Problems Tobacco use (Acute) HTN (hypertension) (Acute) FH: CAD (coronary artery disease) (Acute) Atypical chest pain (Acute) Colon cancer (Acute) Unstable angina (Acute) - VTE Risk Labs: VTE Related Lab Results Hgb 12.3 g/dL (12.2-16.2) 06/30/20 06:40 Hct 36.5 % (37.0-47.0) L 06/30/20 06:40 Plt Count 141 K/mm3 (142-424) L 06/30/20 06:40 BUN 13 mg/dl (7-17) D 06/30/20 06:40 Creatinine 0.80 mg/dl (0.52-1.04) 06/30/20 06:40 Estimated Creat Clear 87 mL/min (50-200) 06/30/20 06:40 VTE Score: 4 VTE Risk Level: Low Risk - Prophylaxis VTE Prophylaxis Ordered?: Yes Types of VTE Prophylaxis: TEDS Knee High Location of Applied Device: Bilateral Lower Extremeties
[2020-06-30 07:49] LABS: Chol/HDL Ratio 3.2 (1-3.5); Cholesterol 126 mg/dl (140-200); HDL Cholesterol 39 mg/dl (40-60); Triglycerides 127 mg/dl (30-150); VLDL Cholesterol 25 mg/dL (0-40)
[2020-06-30 08:00] LABS: Direct LDL Cholesterol 64.45 mg/dL (100-129)
--- NOTE | 2020-06-30 09:01 | HMH.PNCARD ---
Subjective Date: 06/30/20 Time: 08:45 Principal diagnosis: Unstable angina Interval history: This is a 59-year-old white female who presented to emergency department complaints of chest pain. She is having substernal pressure and tightness in her chest that radiates into her back between her shoulder blades her left shoulder and her neck. The patient states that she had some pressure in her chest this morning. She states that this comes and goes. It occurs with rest and exertion and is worse with exertion. It is associated with shortness of breath and rates this about a 7 out of 10 in intensity. At home yesterday she also had hypertension with her chest pain. She also has nausea but is unsure whether this is from of the chemo or associated with the chest tightness. The symptoms have been going on for about a week and progressively worsened and got severe. She does have metastatic colon cancer which is inoperable and she has recently started chemo. She denies any fever, chills, vomiting, diarrhea, PND or orthopnea. Exam Vital signs and Labs for Last 24 Hours: Temp Pulse Resp BP Pulse Ox 98.6 F 65 20 104/61 L 99 06/30/20 08:00 06/30/20 08:00 06/30/20 08:00 06/30/20 08:00 06/30/20 08:00 Laboratory Results - last 24 hr 06/29/20 11:41: WBC 9.0, RBC 4.42, Hgb 12.9, Hct 40.5, MCV 91.6, MCH 29.1, MCHC 31.8, RDW 12.2, Plt Count 168, MPV 8.3, Neut % (Auto) 74.0, Lymph % (Auto) 21.5, [place] % (Auto) 2.4, Eos % (Auto) 1.8, Baso % (Auto) 0.4, Neut # (Auto) 6.6, Lymph # (Auto) 1.9, [place] # (Auto) 0.2, Eos # (Auto) 0.2, Baso # (Auto) 0.0 06/29/20 11:41: Sodium 137, Potassium 3.7, Chloride 105, Carbon Dioxide 24, Anion Gap 11.7, BUN 18 H, Creatinine 0.80, Estimated Creat Clear 89, Estimated GFR 73, Est GFR ( Amer) 89, Glucose 128 H, Calcium 8.7, Total Bilirubin 0.5, AST 31, ALT 15, Alkaline Phosphatase 67, Troponin I < 0.01, Total Protein 6.5, Albumin 4.0, Globulin 2.5, Albumin/Globulin Ratio 1.6 06/29/20 11:41: NT-Pro-B Natriuret Pep 53.3 06/29/20 14:55: Troponin I < 0.01 06/29/20 18:13: Troponin I < 0.01 06/29/20 21:10: Troponin I < 0.01 06/30/20 06:40: Triglycerides 127, Cholesterol 126 L, LDL Cholesterol Direct 64.45 L, VLDL Cholesterol 25, HDL Cholesterol 39 L, Cholesterol/HDL Ratio 3.2 06/30/20 06:40: WBC 6.2 D, RBC 4.07 L, Hgb 12.3, Hct 36.5 L, MCV 89.8, MCH 30.3, MCHC 33.8, RDW 12.5, Plt Count 141 L, MPV 8.6, Neut % (Auto) 53.7, Lymph % (Auto) 39.9, [place] % (Auto) 2.8, Eos % (Auto) 3.0, Baso % (Auto) 0.6, Neut # (Auto) 3.3, Lymph # (Auto) 2.5, [place] # (Auto) 0.2, Eos # (Auto) 0.2, Baso # (Auto) 0.0 06/30/20 06:40: Sodium 138, Potassium 4.2, Chloride 110 H, Carbon Dioxide 26, Anion Gap 6.2, BUN 13 D, Creatinine 0.80, Estimated Creat Clear 87, Estimated GFR 73, Est GFR ( Amer) 89, Glucose 90 D, Calcium 8.6 I & O for Last 24 hours: Intake & Output 06/27/20 06/28/20 06/29/20 06/30/20 23:59 23:59 23:59 23:59 Output Total 0 / 0 Balance 0 / 0 Weight 160 lb 160 lb 0.008 oz Microbiology Reports for the Last 24 Hours: Microbiology 06/29/20 14:14 Nasopharyngeal Coronavirus COVID-19 PCR - Final Narrative: Echo shows: 1. Mild biatrial enlargement, normal left ventricular size, mild concentric left ventricular hypertrophy, visually estimated ejection fraction 55% with no regional wall motion abnormality, grade 1 diastolic dysfunction seen without tissue Doppler evidence of raise left atrial pressure. 2. Mildly enlarged right ventricle with normal contractility. 3. Thickened and calcified aortic valve without aortic stenosis or aortic insufficiency, aortic root and ascending aorta is mildly enlarged as described above. 4. No significant pericardial effusion noted. CTA chest shows: HEART AND MEDIASTINAL STRUCTURES: No evidence of pulmonary embolus, aortic aneurysm, or aortic dissection. There is some mild haziness of the mediastinal. This is of questionable clinical significance and chr
--- NOTE | 2020-06-30 09:54 | HMH.PHAINT ---
MEDICATION RECONCILIATION COMPLETED ON PATIENT USING EXTERNAL FILL HISTORY FROM PHARMACY. -JOHNIE IBARRA, EDYTAD
--- NOTE | 2020-06-30 12:12 | PC.NURSE ---
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
--- NOTE | 2020-06-30 14:24 | HMH.DCSUM ---
General - General Admission date:: 06/29/20 Discharge date: 06/30/20 Hospital Course Hospital Course: [facility] shows: ANGIOGRAPHIC RESULTS The left main artery Normal The left anterior descending artery Normal The circumflex artery Normal The right coronary artery Dominant normal The MORA ventriculogram reveals Normal 65% The left ventricular end-diastolic pressure 10 mmHg IMPRESSION Normal coronary arteries Normal ejection fraction Normal left ventricular end-diastolic pressure PLAN 1. Treatment of noncardiac chest pain No changes from a cardiac standpoint. Pt stable for discharge home from a cardiac standpoint. Objective Vital signs: Temp Pulse Resp BP Pulse Ox 97.6 F 59 L 14 129/71 96 06/30/20 12:35 06/30/20 13:05 06/30/20 13:05 06/30/20 13:05 06/30/20 13:05 Results Labs on day of discharge: Labs from last 24 hours 06/30/20 06/30/20 06/30/20 06:40 06:40 06:40 WBC 6.2 D RBC 4.07 L Hgb 12.3 Hct 36.5 L MCV 89.8 MCH 30.3 MCHC 33.8 RDW 12.5 Plt Count 141 L MPV 8.6 Neut % (Auto) 53.7 Lymph % (Auto) 39.9 [place] % (Auto) 2.8 Eos % (Auto) 3.0 Baso % (Auto) 0.6 Neut # (Auto) 3.3 Lymph # (Auto) 2.5 [place] # (Auto) 0.2 Eos # (Auto) 0.2 Baso # (Auto) 0.0 Sodium 138 Potassium 4.2 Chloride 110 H Carbon Dioxide 26 Anion Gap 6.2 BUN 13 D Creatinine 0.80 Estimated Creat Clear 87 Estimated GFR 73 Est GFR ( Amer) 89 Glucose 90 D Calcium 8.6 Troponin I Triglycerides 127 Cholesterol 126 L LDL Cholesterol Direct 64.45 L VLDL Cholesterol 25 HDL Cholesterol 39 L Cholesterol/HDL Ratio 3.2 06/29/20 06/29/20 06/29/20 21:10 18:13 14:55 WBC RBC Hgb Hct MCV MCH MCHC RDW Plt Count MPV Neut % (Auto) Lymph % (Auto) [place] % (Auto) Eos % (Auto) Baso % (Auto) Neut # (Auto) Lymph # (Auto) [place] # (Auto) Eos # (Auto) Baso # (Auto) Sodium Potassium Chloride Carbon Dioxide Anion Gap BUN Creatinine Estimated Creat Clear Estimated GFR Est GFR ( Amer) Glucose Calcium Troponin I < 0.01 < 0.01 < 0.01 Triglycerides Cholesterol LDL Cholesterol Direct VLDL Cholesterol HDL Cholesterol Cholesterol/HDL Ratio DS: Diagnosis - Discharge Diagnosis (1) Unstable angina Status: Acute (2) Tobacco use Status: Acute (3) FH: CAD (coronary artery disease) Status: Acute (4) Colon cancer Status: Acute (5) HTN (hypertension) Status: Acute Discharge Plan - Patient Discharge Instructions ACTIVITY: Continue current activity DIET: continue same diet Patient Instructions: Angina, Cardiac Catheterization, Surgical Site Infection, How to Quit Smoking - Follow up Plan Disposition: Home, Self-Care Condition at discharge:: Stable Home Medications: Home Medications Medication Instructions Recorded Confirmed Type Bisoprolol Fumarate [Bisoprolol 5 mg PO DAILY 06/29/20 06/30/20 History 5mg Tablet] Cholecalciferol (Vitamin D3) 2,000 units PO DAILY 06/29/20 06/29/20 History [Vitamin D3 1,000 Unit Cap] Cyanocobalamin (Vitamin B-12) 2,500 mcg PO DAILY 06/29/20 06/30/20 History [Vitamin B12 2.5mg Tab] LORazepam [Ativan 1mg tablet] 1 mg PO BIDP PRN 06/29/20 06/30/20 History Ondansetron [Ondansetron Odt 8mg 8 mg PO Q8HP PRN 06/29/20 06/30/20 History Tab] Oxycodone HCl/Acetaminophen 1 - 2 tab PO Q4HP PRN 06/29/20 06/30/20 History [Percocet 5/325mg tablet] Prochlorperazine Maleate 10 mg PO Q6HP PRN 06/29/20 06/30/20 History [Compazine 10mg tablet] Prescriptions/Medication Reconciliation: Continued LORazepam [Ativan 1mg tablet] 1 mg PO BIDP PRN PRN Reason: Anxiety Prochlorperazine Maleate [Compazine 10mg tablet]
--- NOTE | 2020-06-30 14:32 | SW/DCPLANNER ---
PATIENT IS DISCHARGING TODAY AND IS TO FOLLOW WITH WITH HER PRIMARY MD AND SPECIALISTS....
--- NOTE | 2020-06-30 18:55 | HMH.HPDC ---
General - General Admission date:: 06/29/20 Discharge date: 06/30/20 *Admission Date: 06/29/20 *Chief complaint: Chest Pain *History of present illness: 59-year-old female patient presented to the emergency department with complaints of left-sided chest pain radiating through to her back. She described pain as squeezing and tightness, she reports pain has been present for last few days and has become worse yesterday morning, she reports during chest pain she will also have dyspnea. She does have a history of hypertension, family history of CAD. She was recently diagnosed with colon cancer with metastasis to the liver and reports being told it is inoperable. She has started chemotherapy, she her her first chemo infusion was Monday and she has a fresh Port-A-Cath incision on her left upper chest. She denies any fever/chills/body aches or nausea/vomiting/diarrhea. She also reports she has smoked for many years Lab work unremarkable Troponins negative x3 EKG showing sinus tachycardia CTA of her chest revealed no pulmonary pulmonary embolism, it did reveal a slight narrowing of the esophagus, nonspecific [facility] History I have reviewed the patient's past medical history: Yes Medical History: Reports:: Cancer, Heart Murmur, Hypertension Denies:: Chronic Obstructive Pulmonary Disease (COPD), Coronary Artery Disease, Diabetes Mellitus Type 1, Diabetes Mellitus Type 2, Gastroesophageal Reflux Disease(GERD), MRSA *Have you ever received a pneumonia vaccine?: No *Have you received a flu vaccine this season?: No Other Surgeries: Yes: Tubal Ligation Amputation: No - *Social History Smoking Status: Former smoker Tobacco Type: cigarettes # Packs/Day (cigarettes): 1 #Yrs smoked (if former smoker): 25 Alcohol Intake: current Alcohol Intake Frequency:: holidays/special occasions only Substance Use Type: marijuana Last Used Substance: unknown *Occupational Status:: employed Housing: house Household Members: significant other, family *Travel in the last 8 weeks: None Family Hx:: Anemia, Cancer, Diabetes, Heart Attack, Hypertension, Stroke Review of Systems - Review of Systems Review of systems:: pertinent systems reviewed and negative unless documented below - Constitutional Reports fatigue, Reports lack of energy, Denies anorexia, Denies body ache(s) - Eyes Denies blind spots, Denies blurry vision - ENT Denies abnormal hearing, Denies difficulty swallowing - *Cardiovascular Reports chest pain, Reports chest pain at rest, Reports shortness of breath - *Respiratory Reports shortness of breath, Reports shortness of breath with activity, Denies chest congestion - *Gastrointestinal Reports abdominal pain, Denies bloating - *Musculoskeletal Denies abnormal walking, Denies joint pain - Integumentary/Breasts Denies acne, Denies yellowing of the skin - *Neurologic Denies dizziness, Denies headache(s), Denies numbness, Denies fainting - Psychiatric Denies abnormal sleep pattern, Denies lack of enjoyment - Endocrine Denies cold intolerance, Denies increased urination - Hematologic/Lymphatic Denies easy bleeding, Denies easy bruising - Allergic/Immunologic Denies GI upset with certain foods, Denies tongue swelling Exam Vital signs and Labs for Last 24 Hours: Temp Pulse Resp BP Pulse Ox 97.6 F 69 20 111/72 98 06/30/20 12:35 06/30/20 15:50 06/30/20 15:50 06/30/20 15:50 06/30/20 15:50 Laboratory Results - last 24 hr 06/29/20 18:13: Troponin I < 0.01 06/29/20 21:10: Troponin I < 0.01 06/30/20 06:40: Triglycerides 127, Cholesterol 126 L, LDL Cholesterol Direct 64.45 L, VLDL Cholesterol 25, HDL Cholesterol 39 L, Cholesterol/HDL Ratio 3.2 06/30/20 06:40: WBC 6.2 D, RBC 4.07 L, Hgb 12.3, Hct 36.5 L, MCV 89.8, MCH 30.3, MCHC 33.8, RDW 12.5, Plt Count 141 L, MPV 8.6, Neut % (Auto) 53.7, Lymph % (Auto) 39.9, [place] % (Auto) 2.8, Eos % (Auto) 3.0, Baso % (Auto) 0.6, Neut # (Auto) 3.3, Lymph # (Auto) 2.5
== END 2020-06-30 16:30 | disposition home or self-care (01) ==
LOC: ER 14:10 → 2ND 19:43
PROVIDERS: Internal Medicine; Nurse Practitioner Family; Admitting Provider Emergency Medicine; Emergency Provider Emergency Medicine; PCP Pediatrics; Visit Provider Emergency Medicine
DX: C18.9 Malignant neoplasm of colon, unspecified (principal); I25.110 Atherosclerotic heart disease of native coronary artery with unstable angina pectoris; R07.89 Other chest pain; F17.210 Nicotine dependence, cigarettes, uncomplicated; I10 Essential (primary) hypertension; Z88.0 Allergy status to penicillin; Z71.6 Tobacco abuse counseling; C78.7 Secondary malignant neoplasm of liver and intrahepatic bile duct
CPT/HCPCS: 71275; 80048; 80053; 80061; 83880; 84484; 85025; 93005; 93306; 93458; 99152; 99284; C1725; C1769; G0378; J1642; J1644; Q9967; U0003

== ENCOUNTER → 2020-07-16 10:25 | Outpatient (CLI) | payer BC, SELFPAY ==
[2020-07-16 11:04] LABS: Basophils % 0.5 % (0.1-2.0); Eosinophils # 0.3 K/mm3 (0.0-0.4); Eosinophils % 4.8 % (0.1-12.0); Hematocrit 36.8 % (37.0-47.0); Hemoglobin 12.6 g/dL (12.2-16.2); Lymphocytes # 2.3 K/mm3 (0.7-4.5); Lymphocytes % 43.5 % (10-50); Mean Corpuscular HGB Conc 34.2 g/dL (31.8-35.4); Mean Corpuscular Hemoglobin 30.3 pg (27.0-31.2); Mean Corpuscular Volume 88.6 fl (81-99); Mean Platelet Volume 8.6 fl (7.4-10.4); Monocytes # 0.3 K/mm3 (0.1-1.0); Monocytes % 6.2 % (1.7-9.3); Neutrophils # 2.4 K/mm3 (1.8-7.8); Platelet Count 125 K/mm3 (142-424); Red Blood Count 4.15 M/mm3 (4.20-5.40); Red Cell Distribution Width 13.4 % (11.5-17.5); White Blood Count 5.3 K/mm3 (4.8-10.8)
== END ==
DX: I10 Essential (primary) hypertension (principal)
CPT/HCPCS: 36415; 85025

== ENCOUNTER → 2020-09-14 10:00 | Outpatient (CLI) | payer BC, SELFPAY ==
--- NOTE | 2020-09-14 10:01 | PC.NURSE ---
1001-pt in lab; accessed left chest pac with 20g 3/4 inch rollins needle;flushed with ns;obtained blood return;collected specimens;flushed with ns;capped with heparin;deaccessed and covered with 2x2 and bandaid.
[2020-09-14 10:28] LABS: Basophils # 0.1 K/mm3 (0-0.2); Basophils % 1.1 % (0.1-2.0); Eosinophils # 0.3 K/mm3 (0.0-0.4); Eosinophils % 5.2 % (0.1-12.0); Hematocrit 37.7 % (37.0-47.0); Hemoglobin 12.7 g/dL (12.2-16.2); Lymphocytes # 2.3 K/mm3 (0.7-4.5); Lymphocytes % 39.9 % (10-50); Mean Corpuscular HGB Conc 33.7 g/dL (31.8-35.4); Mean Corpuscular Hemoglobin 31.2 pg (27.0-31.2); Mean Corpuscular Volume 92.5 fl (81-99); Mean Platelet Volume 8.7 fl (7.4-10.4); Monocytes # 0.4 K/mm3 (0.1-1.0); Monocytes % 7.4 % (1.7-9.3); Neutrophils # 2.6 K/mm3 (1.8-7.8); Neutrophils % 46.4 % (37.0-80.0); Platelet Count 162 K/mm3 (142-424); Red Blood Count 4.08 M/mm3 (4.20-5.40); Red Cell Distribution Width 16.1 % (11.5-17.5); White Blood Count 5.7 K/mm3 (4.8-10.8)
[2020-09-14 10:59] LABS: Chloride 110 mmol/L (98-107); Potassium 4.4 mmoL/L (3.5-5.1); Sodium 141 mmol/L (136-145)
[2020-09-14 11:01] LABS: Blood Urea Nitrogen 11 mg/dl (7-17); Estimated Glomerular Filt Rate 85 ml/min (>60); GFR (African American) 103 ML/MIN (>60)
[2020-09-14 11:02] LABS: Alanine Aminotransferase 35 U/L (12-78); Alkaline Phosphatase 112 U/L (38-126); Anion Gap 9.4 mEq/L (5-15); Aspartate Amino Transferase 39 U/L (14-36); Bilirubin,Direct 0.2 mg/dl (0.0-0.4); Bilirubin,Total 0.2 mg/dl (0.2-1.3); Carbon Dioxide 26 mmol/L (22.0-30.0); Glucose 105 mg/dl (74-100); Magnesium 1.7 mg/dl (1.6-2.3); Total Protein,Serum 6.4 g/dl (6.3-8.2)
== END ==
PROVIDERS: Visit Provider Physician Assistant
DX: C18.9 Malignant neoplasm of colon, unspecified (principal)
CPT/HCPCS: 36415; 80048; 80076; 83735; 85025; J1642

== ENCOUNTER 2020-11-02 09:27 | Outpatient (CLI) | payer BC, SELFPAY ==
[2020-11-02 10:01] LABS: Basophils # 0.1 K/mm3 (0-0.2); Eosinophils # 0.1 K/mm3 (0.0-0.4); Eosinophils % 1.7 % (0.1-12.0); Hemoglobin 12.9 g/dL (12.2-16.2); Lymphocytes # 1.7 K/mm3 (0.7-4.5); Lymphocytes % 36.4 % (10-50); Mean Corpuscular Hemoglobin 32.7 pg (27.0-31.2); Mean Platelet Volume 9.1 fl (7.4-10.4); Monocytes # 0.4 K/mm3 (0.1-1.0); Monocytes % 8.3 % (1.7-9.3); Neutrophils # 2.5 K/mm3 (1.8-7.8); Neutrophils % 52.6 % (37.0-80.0); Platelet Count 135 K/mm3 (142-424); Red Blood Count 3.93 M/mm3 (4.20-5.40); Red Cell Distribution Width 14.5 % (11.5-17.5); White Blood Count 4.7 K/mm3 (4.8-10.8)
[2020-11-02 10:10] LABS: Chloride 107 mmol/L (98-107); Potassium 3.9 mmoL/L (3.5-5.1); Sodium 140 mmol/L (136-145)
[2020-11-02 10:12] LABS: Blood Urea Nitrogen 14 mg/dl (7-17); Estimated Glomerular Filt Rate 64 ml/min (>60); GFR (African American) 77 ML/MIN (>60)
[2020-11-02 10:13] LABS: Alanine Aminotransferase 14 U/L (12-78); Albumin Level 3.8 g/dl (3.5-5.0); Albumin/Globulin Ratio 1.4 (1.1-1.8); Alkaline Phosphatase 84 U/L (38-126); Anion Gap 10.9 mEq/L (5-15); Aspartate Amino Transferase 28 U/L (14-36); Bilirubin,Total 0.3 mg/dl (0.2-1.3); Calcium 8.7 mg/dl (8.4-10.2); Carbon Dioxide 26 mmol/L (22.0-30.0); Globulin 2.7 g/dL (1.3-3.2); Glucose 116 mg/dl (74-100); Total Protein,Serum 6.5 g/dl (6.3-8.2)
== END 2020-11-02 10:15 | disposition home or self-care (01) ==
PROVIDERS: Visit Provider Internal Medicine Medical Oncology
DX: C18.9 Malignant neoplasm of colon, unspecified (principal)
CPT/HCPCS: 36415; 80053; 85025; J1642

== ENCOUNTER → 2020-11-16 09:00 | Outpatient (CLI) | payer BC, SELFPAY ==
[2020-11-16 09:39] LABS: Eosinophils # 0.1 K/mm3 (0.0-0.4); Eosinophils % 1.9 % (0.1-12.0); Hematocrit 40.1 % (37.0-47.0); Hemoglobin 13.2 g/dL (12.2-16.2); Lymphocytes # 1.7 K/mm3 (0.7-4.5); Lymphocytes % 45.6 % (10-50); Mean Corpuscular Hemoglobin 33.1 pg (27.0-31.2); Mean Corpuscular Volume 100.3 fl (81-99); Mean Platelet Volume 9.6 fl (7.4-10.4); Monocytes # 0.4 K/mm3 (0.1-1.0); Neutrophils # 1.5 K/mm3 (1.8-7.8); Neutrophils % 40.5 % (37.0-80.0); Platelet Count 137 K/mm3 (142-424); Red Cell Distribution Width 15.2 % (11.5-17.5); White Blood Count 3.7 K/mm3 (4.8-10.8)
[2020-11-16 09:45] LABS: Chloride 108 mmol/L (98-107); Potassium 4.1 mmoL/L (3.5-5.1); Sodium 140 mmol/L (136-145)
[2020-11-16 09:48] LABS: Alanine Aminotransferase 13 U/L (12-78); Albumin Level 4.1 g/dl (3.5-5.0); Albumin/Globulin Ratio 1.6 (1.1-1.8); Alkaline Phosphatase 87 U/L (38-126); Anion Gap 11.1 mEq/L (5-15); Aspartate Amino Transferase 25 U/L (14-36); Bilirubin,Total 0.4 mg/dl (0.2-1.3); Blood Urea Nitrogen 9 mg/dl (7-17); Calcium 9.1 mg/dl (8.4-10.2); Carbon Dioxide 25 mmol/L (22.0-30.0); Estimated Glomerular Filt Rate 85 ml/min (>60); GFR (African American) 103 ML/MIN (>60); Globulin 2.6 g/dL (1.3-3.2); Glucose 112 mg/dl (74-100); Total Protein,Serum 6.7 g/dl (6.3-8.2)
== END ==
PROVIDERS: Visit Provider Internal Medicine Medical Oncology
DX: C18.9 Malignant neoplasm of colon, unspecified (principal)
CPT/HCPCS: 80053; 85025; J1642

== ENCOUNTER 2020-11-20 22:03 | Emergency (ER) | payer BC, SELFPAY ==
[2020-11-20 22:05] VITALS: BP 122/87; PULSE 83; RESP 18; TEMP 36.4; O2SAT 97; BMI 22.6
[2020-11-20 23:07] LABS: Eosinophils # 0.1 K/mm3 (0.0-0.4); Eosinophils % 2.5 % (0.1-12.0); Hematocrit 41.8 % (37.0-47.0); Hemoglobin 13.7 g/dL (12.2-16.2); Lymphocytes # 1.2 K/mm3 (0.7-4.5); Lymphocytes % 35.9 % (10-50); Mean Corpuscular HGB Conc 32.7 g/dL (31.8-35.4); Mean Corpuscular Hemoglobin 32.2 pg (27.0-31.2); Mean Corpuscular Volume 98.4 fl (81-99); Monocytes % 1.2 % (1.7-9.3); Neutrophils % 59.3 % (37.0-80.0); Platelet Count 135 K/mm3 (142-424); Red Blood Count 4.25 M/mm3 (4.20-5.40); Red Cell Distribution Width 14.9 % (11.5-17.5); White Blood Count 3.5 K/mm3 (4.8-10.8)
[2020-11-20 23:23] LABS: Alanine Aminotransferase 14 U/L (12-78); Albumin/Globulin Ratio 1.5 (1.1-1.8); Alkaline Phosphatase 72 U/L (38-126); Amylase 55 U/L (30-110); Anion Gap 10.2 mEq/L (5-15); Aspartate Amino Transferase 25 U/L (14-36); Bilirubin,Total 0.5 mg/dl (0.2-1.3); Blood Urea Nitrogen 17 mg/dl (7-17); Carbon Dioxide 26 mmol/L (22.0-30.0); Chloride 107 mmol/L (98-107); Creatinine Clearance Estimated 91 mL/min (50-200); Estimated Glomerular Filt Rate 85 ml/min (>60); GFR (African American) 103 ML/MIN (>60); Globulin 2.6 g/dL (1.3-3.2); Glucose 117 mg/dl (74-100); Lipase 104 U/L (23-300); Potassium 4.2 mmoL/L (3.5-5.1); Sodium 139 mmol/L (136-145); Total Protein,Serum 6.6 g/dl (6.3-8.2)
[2020-11-20 23:29] LABS: C-Reactive Protein 0.9 mg/L (0-4)
[2020-11-20 23:42] LABS: Procalcitonin 0.047 ng/mL (0.0-2.0)
[2020-11-20 23:46] LABS: Erythrocyte Sedimentation Rate 22 mm/hr (0-30)
[2020-11-20 23:50] VITALS: BP 114/72; PULSE 76; O2SAT 99
[2020-11-21] VITALS (7 sets, daily range): BP systolic 95–130; BP diastolic 52–77; PULSE 74–80; RESP 18; TEMP 36.9; O2SAT 97–99
--- NOTE | 2020-11-21 00:43 | HMH.EDNVD ---
ED Disposition Clinical Impression: Drug-induced nausea and vomiting Colon cancer Qualifiers: Colon location: unspecified part of colon Qualified Code(s): C18.9 - Malignant neoplasm of colon, unspecified Disposition: Home, Self-Care Condition on Discharge: Good Instructions: DI for Nausea -- Adult Additional Instructions: fluids and call pcp for follow up Prescriptions: Ondansetron [Zofran 4mg ODT] 4 mg PO TIDP PRN #20 tab PRN Reason: Nausea And Vomiting Transmission Status: Pending to [id number] Referrals: Shivam Munroe [Primary Care Provider] - - Critical Care Critical Care Time: No Attestation: On 11/20/20, the high probability of a clinically significant, sudden or life threatening deterioration of the following system(s) required my full and direct attention, intervention and personal management. The time I documented below is in addition to time spent performing reported procedures but includes the following listed in this critical care notation. Medical Decision Making - Medical Records Medical records reviewed: Yes: I reviewed the patient's medical records. - Navdeep Inquiry Pt receiving controlled substance: No Vital Signs: 11/20/20 22:05 Temperature 97.6 F Temperature Source Oral Pulse Rate [Right Radial] 83 Respiratory Rate 18 Blood Pressure [Right Arm] 122/87 Blood Pressure Mean [Right Arm] 98 Blood Pressure Source [Right Arm] Automatic Cuff Blood Pressure Position [Right Arm] Supine 02 Sat by Pulse Oximetry 97 Oxygen Delivery Method Room Air - Lab Data Lab results reviewed: Yes: I reviewed the patient's lab results. Lab Results 11/20/20 23:00: WBC 3.5 L, RBC 4.25, Hgb 13.7, Hct 41.8, MCV 98.4, MCH 32.2 H, MCHC 32.7, RDW 14.9, Plt Count 135 L, MPV 9.0, Neut % (Auto) 59.3, Lymph % (Auto) 35.9, [place] % (Auto) 1.2 L, Eos % (Auto) 2.5, Baso % (Auto) 1.0, Neut # (Auto) 2.0, Lymph # (Auto) 1.2, [place] # (Auto) 0.0 L, Eos # (Auto) 0.1, Baso # (Auto) 0.0, ESR 22 11/20/20 23:00: Sodium 139, Potassium 4.2, Chloride 107, Carbon Dioxide 26, Anion Gap 10.2, BUN 17, Creatinine 0.70, Estimated Creat Clear 91, Estimated GFR 85, Est GFR ( Amer) 103, Glucose 117 H, Calcium 9.0, Total Bilirubin 0.5, AST 25, ALT 14, Alkaline Phosphatase 72, C-Reactive Protein 0.9, Total Protein 6.6, Albumin 4.0, Globulin 2.6, Albumin/Globulin Ratio 1.5, Amylase 55, Lipase 104, Procalcitonin 0.047 Result diagrams: 11/20/20 23:00 11/20/20 23:00 Orders (Tests/Meds): ED MEDICATIONS Discontinued Medications Generic Name Dose Route Start Last Admin Trade Name Freq PRN Reason Stop Dose Admin Sodium Chloride 1,000 mls @ 999 mls/hr 11/20/20 22:30 11/20/20 22:44 Sod Chlor 0.9% 1000ml Bag IV 11/20/20 23:30 999 mls/hr .Q1H1M RITU Administration Ondansetron HCl 4 mg 11/20/20 22:29 11/20/20 22:44 Ondansetron 4mg/2ml Vial IV 11/20/20 22:30 4 mg ONCE ONE Administration Medical Decision Narrative: after fluids feels better and has stable exam Nausea/Vomiting/Diarrhea HPI - General Chief complaint: Nausea/Vomiting/Diarrhea Stated complaint: V&V Time Seen by Provider: 11/20/20 23:00 Mode of Arrival: Ambulatory Source of Information: Patient, Medical Record Limitations: No Limitations Description of Symptoms (Recalled from ER Triage Doc. by RN): Pt reports 2 hours of N/V/D. She denies abdominal pain. She says she is currently on chemo for colon cancer and has been unable to keep her zofran down. She was able to get imodium down. Denies fevers. - History of Present Illness HPI Narrative: over the last few hrs has crampy pain and n/v felt to be related to chemo MD complaint: nausea, vomiting, diarrhea Onset (ago): hour(s) Associated Abdominal Pain: Yes Location of pain: diffuse Severity: moderate Quality: cramping Context: other (chemo) Associated symptoms: denies other symptoms - Related Data Home Medications Medication Instructions Recorded Confirmed
== END 2020-11-21 02:58 | disposition home or self-care (01) ==
PROVIDERS: Emergency Provider Emergency Medicine; PCP Pediatrics
DX: C18.9 Malignant neoplasm of colon, unspecified (principal); R11.2 Nausea with vomiting, unspecified; T45.1X5A Adverse effect of antineoplastic and immunosuppressive drugs, initial encounter
CPT/HCPCS: 80053; 82150; 83690; 84145; 85025; 85651; 86140; 96365; 96366; 99282; J2405

== ENCOUNTER → 2021-01-01 08:38 | Outpatient (CLI) | payer BC, SELFPAY | PROVIDERS: PCP Pediatrics; Visit Provider Physician Assistant | DX: R07.89 Other chest pain (principal); R07.2 Precordial pain; I77.810 Thoracic aortic ectasia; I10 Essential (primary) hypertension; F17.200 Nicotine dependence, unspecified, uncomplicated; Z72.0 Tobacco use | CPT/HCPCS: 93306 ==

== ENCOUNTER → 2021-01-15 10:45 | Outpatient (CLI) | payer BC, SELFPAY | PROVIDERS: Visit Provider Surgery | DX: Z20.822 Contact with and (suspected) exposure to COVID-19 (principal) | CPT/HCPCS: C9803; U0003; U0005 ==

== ENCOUNTER 2021-03-30 11:54 | Outpatient (CLI) | payer BC, SELFPAY ==
[2021-03-30 12:17] VITALS: BP 96/62; PULSE 102; RESP 20; TEMP 36.9; O2SAT 95
[2021-03-30 13:15] VITALS: BP 91/60; PULSE 99; RESP 20; TEMP 36.9; O2SAT 96
== END 2021-03-30 13:20 | disposition home or self-care (01) ==
LOC: INF 11:57
PROVIDERS: PCP Pediatrics; Visit Provider Internal Medicine Medical Oncology
DX: C18.9 Malignant neoplasm of colon, unspecified (principal)
CPT/HCPCS: 96360; J1642

== ENCOUNTER → 2021-04-09 10:48 | Outpatient (CLI) | payer BC, SELFPAY ==
--- NOTE | 2021-04-09 10:49 | CA_ITS ---
APPROVED REPORT EXAM: Comprehensive 2D, Doppler, and color-flow Echocardiogram [employer] Supervisor: Noa Hogan RVT Ht: 5 ft 8 in Wt: 154lbs BSA: 1.83 BP: 113/79 mmHg Indications: SOA,PRE-OP,MURMUR,HTN,SMOKER,CANCER TDS 2D Dimensions LVOT 2.15 cm (M/F) 1.5-2.5 M-Mode Dimensions RVDd 2.53 cm (0.9-2.6) LA Diam 2.50 cm (1.9-4.0) LVDd 3.93 cm (3.5-5.7) Ao Diam 3.78 cm (2.0-3.7) LVDs 2.65 cm (3.5-5.7) IVSd 0.68 cm (0.6-1.1) PWd 0.80 cm (0.6-1.1) EF (Teich) 61.50% FS 32.60% EDV (Teich) 67.10 mL TAPSE 1.72 (<1.7) ESV (Teich) 25.80 mL LV Diastology E Decel Time 150.00 (160-240 msec) E/A Ratio 0.4 MED E' 4.50 (< 7 cm/sec) E'/MED E' Ratio 9.49 (>14) LAT E' 6.40 (<10 cm/sec) E/LAT E' Ratio 6.67 (>14) Aortic Valve AI PHT 506.00 ms AO Peak GR. 4.40 mmHg AO VTI 15.27 (18-25 cm) Mitral Valve MV E Max [place]. 43.00 (40-130 cm/s) MV A Velocity 98.00 (40-130 cm/s) E/A Ratio 0.44 MV Decel. Time 150.00 (160-240 ms) MV PHT 44.00 ms Pulmonary Valve PV Peak Velocity 65.00 (50-150 cm/s) Tricuspid Valve TR P. Velocity 293.00 cm/s RAP Estimate 10.00 mmHg RVSP 44.30 mmHg Left Ventricle Left atrium is mildly enlarged, left ventricle is normal size, mild concentric left ventricular hypertrophy, visually estimated ejection fraction 55% with no regional wall motion abnormality, Doppler evidence of impaired relaxation seen, tissue Doppler is inconclusive. Right Ventricle Right atrium and right ventricle particularly mildly dilated normal contractility. Aortic Valve Aortic valve is thickened and calcified, aortic root is enlarged measuring 3.8 cm. There is no aortic stenosis or aortic insufficiency. Mitral Valve Mitral valve grossly normal, there is trace mitral regurgitation. Tricuspid Valve Tricuspid valve is grossly normal, there is mild tricuspid regurgitation, calculated right ventricular systolic pressure is 44 mmHg. Pulmonic Valve Pulmonic valve is poorly visualized. Great Vessels Inferior vena cava normal size with normal inspiratory collapse. Pericardium No significant pericardial effusion noted. Conclusion 1. Mild biatrial enlargement, normal left ventricular size, mild concentric left ventricular hypertrophy, visually estimated ejection fraction 55% with no regional wall motion abnormality, no evidence of impaired relaxation seen. 2. Thickened calcified aortic valve without aortic stenosis aortic insufficiency, aortic root is enlarged measuring 3.8 cm. 3. Trace mitral and tricuspid regurgitation. 4. No significant pericardial effusion. 5. Inferior vena cava normal size with normal inspiratory collapse. Electronically signed by : Ravi Ohara MD 04/09/2021 13:16:45
== END ==
PROVIDERS: PCP Pediatrics; Visit Provider Physician Assistant
DX: Z82.49 Family history of ischemic heart disease and other diseases of the circulatory system (principal); C18.9 Malignant neoplasm of colon, unspecified
CPT/HCPCS: 93306

== ENCOUNTER → 2021-04-30 11:52 | Outpatient (CLI) | payer BC, SELFPAY ==
[2021-04-30 12:54] LABS: Hematocrit 36.5 % (37.0-47.0); Hemoglobin 11.6 g/dL (12.2-16.2); Mean Corpuscular HGB Conc 31.8 g/dL (31.8-35.4); Mean Corpuscular Hemoglobin 28.2 pg (27.0-31.2); Mean Corpuscular Volume 88.9 fl (81-99); Platelet Count 302 K/mm3 (142-424); Red Blood Count 4.11 M/mm3 (4.20-5.40); Red Cell Distribution Width 18.5 % (11.5-17.5); White Blood Count 9.4 K/mm3 (4.8-10.8)
[2021-04-30 13:46] LABS: Alanine Aminotransferase 37 U/L (12-78); Albumin/Globulin Ratio 1.5 (1.1-1.8); Alkaline Phosphatase 219 U/L (38-126); Anion Gap 12.2 mEq/L (5-15); Aspartate Amino Transferase 29 U/L (14-36); Bilirubin,Total 0.5 mg/dl (0.2-1.3); Blood Urea Nitrogen 16 mg/dl (7-17); Carbon Dioxide 25 mmol/L (22.0-30.0); Chloride 104 mmol/L (98-107); Estimated Glomerular Filt Rate 64 ml/min (>60); GFR (African American) 77 ML/MIN (>60); Globulin 2.6 g/dL (1.3-3.2); Glucose 117 mg/dl (74-100); Magnesium 1.3 mg/dl (1.6-2.3); Potassium 4.2 mmoL/L (3.5-5.1); Sodium 137 mmol/L (136-145); Total Protein,Serum 6.6 g/dl (6.3-8.2); Triglycerides 143 mg/dl (30-150)
[2021-05-01 10:15] LABS: Prealbumin 17 mg/dL (10-36)
== END ==
PROVIDERS: Visit Provider Surgery
DX: C18.9 Malignant neoplasm of colon, unspecified (principal)
CPT/HCPCS: 36415; 80053; 83735; 84100; 84134; 84478; 85014; 85018; 85048; 85049

== ENCOUNTER → 2021-05-05 12:40 | Outpatient (CLI) | payer BC, SELFPAY ==
[2021-05-05 13:22] LABS: Hematocrit 35.7 % (37.0-47.0); Mean Corpuscular HGB Conc 30.9 g/dL (31.8-35.4); Mean Corpuscular Hemoglobin 27.7 pg (27.0-31.2); Mean Corpuscular Volume 89.8 fl (81-99); Platelet Count 274 K/mm3 (142-424); Red Blood Count 3.98 M/mm3 (4.20-5.40); Red Cell Distribution Width 18.3 % (11.5-17.5); White Blood Count 8.2 K/mm3 (4.8-10.8)
[2021-05-05 19:20] LABS: Chloride 106 mmol/L (98-107); Sodium 138 mmol/L (136-145)
[2021-05-05 19:21] LABS: Potassium 4.9 mmoL/L (3.5-5.1)
[2021-05-05 19:23] LABS: Alanine Aminotransferase 57 U/L (12-78); Albumin Level 3.5 g/dl (3.5-5.0); Albumin/Globulin Ratio 1.3 (1.1-1.8); Alkaline Phosphatase 197 U/L (38-126); Anion Gap 12.9 mEq/L (5-15); Aspartate Amino Transferase 44 U/L (14-36); Bilirubin,Total 0.6 mg/dl (0.2-1.3); Blood Urea Nitrogen 19 mg/dl (7-17); Calcium 8.8 mg/dl (8.4-10.2); Carbon Dioxide 24 mmol/L (22.0-30.0); Estimated Glomerular Filt Rate 85 ml/min (>60); GFR (African American) 103 ML/MIN (>60); Globulin 2.6 g/dL (1.3-3.2); Glucose 108 mg/dl (74-100); Phosphorous 4.5 mg/dl (2.5-4.5); Total Protein,Serum 6.1 g/dl (6.3-8.2)
[2021-05-05 19:24] LABS: Triglycerides 158 mg/dl (30-150)
== END ==
PROVIDERS: Visit Provider Surgery
DX: C18.9 Malignant neoplasm of colon, unspecified (principal); C78.7 Secondary malignant neoplasm of liver and intrahepatic bile duct; Z78.9 Other specified health status
CPT/HCPCS: 80053; 83735; 84100; 84478; 85014; 85018; 85048; 85049

== ENCOUNTER → 2021-05-10 11:41 | Outpatient (CLI) | payer BC, SELFPAY ==
[2021-05-10 15:21] LABS: Alanine Aminotransferase 41 U/L (12-78); Albumin Level 3.6 g/dl (3.5-5.0); Albumin/Globulin Ratio 1.3 (1.1-1.8); Alkaline Phosphatase 178 U/L (38-126); Anion Gap 8.7 mEq/L (5-15); Aspartate Amino Transferase 41 U/L (14-36); Bilirubin,Total 0.5 mg/dl (0.2-1.3); Blood Urea Nitrogen 17 mg/dl (7-17); Calcium 9.1 mg/dl (8.4-10.2); Carbon Dioxide 31 mmol/L (22.0-30.0); Chloride 101 mmol/L (98-107); Estimated Glomerular Filt Rate 102 ml/min (>60); GFR (African American) 123 ML/MIN (>60); Globulin 2.8 g/dL (1.3-3.2); Glucose 113 mg/dl (74-100); Phosphorous 4.6 mg/dl (2.5-4.5); Potassium 4.7 mmoL/L (3.5-5.1); Sodium 136 mmol/L (136-145); Total Protein,Serum 6.4 g/dl (6.3-8.2); Triglycerides 182 mg/dl (30-150)
== END ==
PROVIDERS: Visit Provider Surgery
DX: C18.9 Malignant neoplasm of colon, unspecified (principal)
CPT/HCPCS: 80053; 83735; 84100; 84478

== ENCOUNTER → 2021-05-17 11:17 | Outpatient (CLI) | payer BC, SELFPAY ==
[2021-05-17 12:25] LABS: Chloride 108 mmol/L (98-107); Potassium 3.9 mmoL/L (3.5-5.1); Sodium 138 mmol/L (136-145)
[2021-05-17 12:27] LABS: Blood Urea Nitrogen 11 mg/dl (7-17); Estimated Glomerular Filt Rate 102 ml/min (>60); GFR (African American) 123 ML/MIN (>60)
[2021-05-17 12:28] LABS: Alanine Aminotransferase 35 U/L (12-78); Albumin Level 3.2 g/dl (3.5-5.0); Albumin/Globulin Ratio 1.2 (1.1-1.8); Alkaline Phosphatase 198 U/L (38-126); Anion Gap 5.9 mEq/L (5-15); Aspartate Amino Transferase 33 U/L (14-36); Bilirubin,Total 0.4 mg/dl (0.2-1.3); Calcium 8.4 mg/dl (8.4-10.2); Carbon Dioxide 28 mmol/L (22.0-30.0); Globulin 2.7 g/dL (1.3-3.2); Glucose 100 mg/dl (74-100); Magnesium 1.9 mg/dl (1.6-2.3); Phosphorous 4.1 mg/dl (2.5-4.5); Total Protein,Serum 5.9 g/dl (6.3-8.2); Triglycerides 156 mg/dl (30-150)
== END ==
PROVIDERS: Visit Provider Surgery
DX: C18.9 Malignant neoplasm of colon, unspecified (principal)
CPT/HCPCS: 80053; 83735; 84100; 84478

== ENCOUNTER → 2021-05-24 11:36 | Outpatient (CLI) | payer BC, SELFPAY ==
[2021-05-24 13:17] LABS: Alanine Aminotransferase 24 U/L (12-78); Albumin Level 3.2 g/dl (3.5-5.0); Albumin/Globulin Ratio 1.4 (1.1-1.8); Alkaline Phosphatase 151 U/L (38-126); Anion Gap 10.5 mEq/L (5-15); Aspartate Amino Transferase 34 U/L (14-36); Bilirubin,Total 0.5 mg/dl (0.2-1.3); Blood Urea Nitrogen 13 mg/dl (7-17); Calcium 8.4 mg/dl (8.4-10.2); Carbon Dioxide 26 mmol/L (22.0-30.0); Chloride 104 mmol/L (98-107); Estimated Glomerular Filt Rate 126 ml/min (>60); GFR (African American) 152 ML/MIN (>60); Globulin 2.3 g/dL (1.3-3.2); Glucose 131 mg/dl (74-100); Magnesium 1.6 mg/dl (1.6-2.3); Phosphorous 3.7 mg/dl (2.5-4.5); Potassium 3.5 mmoL/L (3.5-5.1); Sodium 137 mmol/L (136-145); Total Protein,Serum 5.5 g/dl (6.3-8.2); Triglycerides 121 mg/dl (30-150)
== END ==
PROVIDERS: Visit Provider Surgery
DX: C18.9 Malignant neoplasm of colon, unspecified (principal); C79.9 Secondary malignant neoplasm of unspecified site
CPT/HCPCS: 80053; 83735; 84100; 84478